=== PATIENT | male | born 2000 | race Caucasian/White ===

== ENCOUNTER 2021-04-17 18:10 | Emergency (ER) | payer MEDICAID, SELFPAY ==
--- NOTE | 2021-04-17 | ECG_ITS ---
Test Reason : CHEST PAIN Blood Pressure : / mmHG Vent. Rate : 058 BPM Atrial Rate : 058 BPM P-R Int : 162 ms QRS Dur : 096 ms QT Int : 406 ms P-R-T Axes : 013 061 051 degrees QTc Int : 398 ms Sinus bradycardia Otherwise normal ECG No previous ECGs available Referred By: Faraz Strong Electronically Signed By:CESAR SWIFT
--- NOTE | 2021-04-17 19:11 | PC.NURSE ---
PT CALLED IN TRIAGE, NO RESPONSE.
== END 2021-04-17 19:16 | disposition left against medical advice (07) ==
PROVIDERS: Emergency Provider Emergency Medicine
DX: R07.9 Chest pain, unspecified (principal)
CPT/HCPCS: 93005; 99283

== ENCOUNTER 2021-04-30 19:26 | Emergency (ER) | payer MEDICAID, SELFPAY ==
[2021-04-30 19:42] VITALS: BP 139/78; PULSE 69; RESP 18; TEMP 36.3; O2SAT 100; BMI 19.8
== END 2021-04-30 21:00 | disposition left against medical advice (07) ==
PROVIDERS: Emergency Provider Emergency Medicine
DX: R20.0 Anesthesia of skin (principal)
CPT/HCPCS: 99281; 99282

== ENCOUNTER 2021-05-10 14:21 | Emergency (ER) | payer MEDICAID, SELFPAY ==
--- NOTE | ~2021-05-10 | XR_ITS ---
EXAMINATION: XR CHEST CLINICAL INFORMATION: Pneumonia COMPARISON: None TECHNIQUE: PA view of the chest was obtained. FINDINGS: No significant abnormality is noted involving the heart, lungs, mediastinum, bony thorax or soft tissues. XR/XR chest 1V IMPRESSION: No acute disease.
[2021-05-10 14:32] VITALS: BP 138/90; PULSE 98; O2SAT 98
[2021-05-10 15:05] VITALS: BP 134/93; PULSE 80; RESP 18; TEMP 36.4; O2SAT 99; BMI 18.8
--- NOTE | 2021-05-10 15:57 | ED.GENADULT ---
HPI - General Adult General Chief complaint: General Medical Stated complaint: bodyaches Time Seen by Provider: 05/10/21 15:25 Source: patient Mode of arrival: ambulatory Limitations: no limitations History of Present Illness HPI narrative: Patient presents to ED for coughing phlegm, body aches, and chills for the past week. Patient states already being on antibiotics for tooth infection that has improved significantly and nonpainful Patient denies any drooling, chest pain, shortness of breath, neck swelling, facial swelling, weakness, or dizziness. Patient also states right shoulder pain. Patient denies any trauma, swelling, redness, deformity of right upper shoulder. Related Data Previous Rx's Medication Instructions Recorded benzonatate 100 mg capsule 100 mg PO TID PRN #15 cap 05/10/21 (Kaycee Zapata) Allergies Allergy/AdvReac Type Severity Reaction Status Date / Time No Known Allergies Allergy Verified 05/10/21 15:08 Review of Systems Review of Systems: Yes all other systems are reviewed and are negative Constitutional: Constitutional: Reports as per HPI, Reports no additional constitutional complaints and Reports body ache(s) Eyes: Eyes: Reports as per HPI and Reports no additional eye complaints ENT: Reports system reviewed and no additional complaints, except as documented and Reports as per HPI Cardiovascular: Cardiovascular: Reports as per HPI and Reports no additional cardiovascular complaints Respiratory: Respiratory: Reports as per HPI, Reports no additional respiratory complaints, Reports cough and Reports excessive phlegm production (Green phlegm) Gastrointestinal: Gastrointestinal: Reports as per HPI and Reports no additional gastrointestinal complaints Genitourinary: Genitourinary: Reports no additional male genitourinary complaints Musculoskeletal: Musculoskeletal: Reports no additional musculoskeletal complaints, Reports as per HPI and Reports arthralgias (Shoulder pain) Neurologic: Reports system reviewed and no additional complaints, except as documented and Reports as per HPI Psychiatric: Psychiatric: Reports no additional psychiatric complaints and Reports as per HPI [facility] Past Medical History Medical History (Updated 05/10/21 @ 17:13 by KEZIA Zuniga) Anxiety Depression Social History Social History Advance Directives: No Advance Directives Information Provided: No Physical Exam Vital Signs: Vital Signs: Last Vital Signs Temp 97.6 F 05/10/21 15:05 Pulse 80 05/10/21 15:05 Resp 18 05/10/21 15:05 BP 134/93 H 05/10/21 15:05 Pulse Ox 99 10/22/21 15:05 Body Mass Index 18.8 Const: General: cooperative, healthy appearing, comfortable, no acute distress, well developed, alert and awake Orientation/consciousness: patient oriented x3 HENMT: Other: Negative for signs of cellulitis in submandibular space Head: Yes normal to inspection, Yes No palpable skull fracture present, Yes normocephalic, Yes atraumatic and No abrasion Ears: hearing grossly normal bilaterally, external ears normal, TM's normal bilaterally, EAC's normal, mastoids normal and no periauricular adenopathy General nose exam: Normal external nose present and Normal nares present Face and sinus: Yes normal facial exam and Yes sinuses nontender Teeth and gingiva: dentition normal and gingiva normal Throat: Yes posterior oropharynx normal, Yes tonsils normal and Yes uvula midline Eyes: General: appearance normal, both eyes and all related structures Neck: Neck: Yes normal visual inspection, Yes full ROM, Yes no lymphadenopathy, Yes no meningeal signs, Yes trachea midline, Yes supple, No anterior neck swelling and No tender Chest: Chest palpation & inspection: normal inspection of the chest and normal palpation of entire chest wall Resp: Effort & Inspection: normal respiratory effort and able to speak in complete sentences Auscultation: clear to auscultation bilaterally Cardio: Jugular venous distension: no JVD Heart sounds: S1 normal heart sound present and S2 normal heart sound present GI: Inspection: Yes normal to inspection and No abdominal wall ecchymosis Palpation (GI): Soft to palpation, not firm, nontender, no guarding and not rigid : General: No CVA tenderness and Yes no CVA tenderness Back/Spine/Pelvis: Back: no CVA tenderness, No CVA tenderness and No back tenderness Skin: General skin exam: no rashes or lesions noted and elasticity normal Neuro: General: patient oriented x3, gait normal, no meningeal signs and CN's II-XI intact bilaterally Cranial nerves: Yes CN's II-XII intact bilaterally Extrem: Other: All extremities including right negative for any signs of ecchymosis, swelling, deformity, redness, mass on palpation, hotness, coldness, pus discharge or foul odor. All extremities motor/neuro/vascular exam intact. General: Yes normal to inspection and Yes full ROM Psych: Appearance: grossly normal, well kempt and not disheveled Course Course Course Narrative: Patient speaking in full sentences and not using accessory muscles. Negative for drooling or change in voice. Negative for hoarseness. Negative for neck swelling. Will do COVID and chest x-ray. Reevaluation(s) Reevaluation #1: COVID swab and chest x-ray negative for pneumonia and COVID. Not suspect Elie angina. Patient is not hoarse. Negative for drooling. Negative for swelling of neck or oral cavity. Negative for fluctuance in oral cavity/submandibular space. Negative for any redness. Patient playing video games. Negative for any neck swelling. Dr. Aubrey Taylor evaluated patient and agreed the patient is not having Elie angina can be discharged. Diagnosis URI. Time: 17:12 Medical Decision Making MDM Narrative Medical decision making narrative: URI Lab Data Labs: Lab Results 05/10/21 Range/Units 15:39 Coronavirus (PCR) NEGATIVE (Negative) Influenza Type A (PCR) NEGATIVE (Negative) Influenza Type B (PCR) NEGATIVE (Negative) RSV RNA Qual (PCR) NEGATIVE (Negative) Discharge Plan Discharge Clinical Impression: Acute upper respiratory infection Patient Disposition: Home, Self-Care Instructions: Upper Respiratory Infection (ED) Additional Instructions: A chest x-ray and COVID swab came back negative. Return to the ED for any shortness of breath, coughing up blood, leg swelling, calf pain, neck swelling, drooling, change in voice, inability tolerate solid food/liquid, or any other concerning symptoms. Please follow-up with primary care provider Prescriptions: New benzonatate [Tessalon Perles] 100 mg capsule 100 mg PO TID PRN (Reason: cough) Qty: 15 RF: 0 Interventions: ED Discharge Assessment Last Done: 05/10/21 17:32 Discharge Date/Time: 05/10/21 17:33 Print Language: Romansh
[2021-05-10] MEDS: Cyclobenzaprine HCl 5 MG TABLET PO (16:04)
[2021-05-10 16:21] LABS: Influenza A PCR NEGATIVE (Negative); Influenza B PCR NEGATIVE (Negative); Resp Syncy Virus RNA Qual PCR NEGATIVE (Negative); SARS COV2 PCR INHOUSE NEGATIVE (Negative)
== END 2021-05-10 17:33 | disposition home or self-care (01) ==
PROVIDERS: Physician Assistant; Emergency Provider Internal Medicine
DX: J06.9 Acute upper respiratory infection, unspecified (principal); M79.10 Myalgia, unspecified site; R05.9 Cough, unspecified; Z79.899 Other long term (current) drug therapy; Z20.822 Contact with and (suspected) exposure to COVID-19
CPT/HCPCS: 0241U; 36415; 71045; 99283

== ENCOUNTER 2021-05-11 03:42 | Emergency (ER) | payer MEDICAID, SELFPAY ==
[2021-05-11 03:45] VITALS: BP 133/78; PULSE 80; O2SAT 100
[2021-05-11 03:50] VITALS: BP 120/74; PULSE 68; RESP 16; TEMP 37; O2SAT 97; BMI 19.8
--- NOTE | 2021-05-11 04:13 | ED.GENADULT ---
HPI - General Adult General Chief complaint: Abdominal Pain Stated complaint: BACK PAIN Time Seen by Provider: 05/11/21 04:06 Source: patient and EMS Mode of arrival: EMS Limitations: no limitations History of Present Illness HPI narrative: Patient comes to the emergency room by ambulance complaining of right lower back pain. Patient states it started several hours ago. Patient denies any back injury, no heavy lifting. Patient has been trying to take ibuprofen for the back pain. Patient denies flank pain, patient states that he had 1 episode dysuria prior to arrival, no hematuria, denies fever chills. Patient states he was seen earlier today for URI. Symptoms in this visit are different than on his visit earlier today. Related Data Previous Rx's Medication Instructions Recorded benzonatate 100 mg capsule 100 mg PO TID PRN #15 cap 05/10/21 (Kaycee Zapata) cyclobenzaprine 10 mg tablet 10 mg PO TID PRN #7 tab 05/11/21 Allergies Allergy/AdvReac Type Severity Reaction Status Date / Time No Known Allergies Allergy Verified 05/11/21 04:20 Review of Systems Review of Systems: Constitutional : No Weight loss, No Fever, No Chills, No Night Sweats, No Fatigue, No Malaise ENT/Mouth : No Hearing loss, No Ear Pain, No Nasal Congestion, No Sinus Pain, No Hoarseness, No sore throat, No Rhinorrhea, No Swallowing Difficulty Eyes: No Eye Pain, No Swelling, No Redness, No Foreign Body, No Discharge, No Vision Changes Cardiovascular : No Chest Pain, No SOB, No Dyspnea on Exertion, No Orthopnea, No Edema, No Palpitations Respiratory : Mild cough, mild congestion, known to have a URI, No Smoke Exposure, No Dyspnea Gastrointestinal : No Nausea, No Vomiting, No Diarrhea, No Constipation, No abdominal Pain, No Hematochezia, No Melena Genitourinary : no irregular bleeding, No Dysuria, No Urinary Frequency, No Hematuria, No Urinary Incontinence, No Urgency, No Flank Pain, No Urinary Flow Changes, No Hesitancy Musculoskeletal : No joint pain, No Myalgias, No Joint Swelling, complaining of right lower back pain Skin : No Skin Lesions, No rash Neuro : No Weakness, No Numbness, No Paresthesias, No Loss of Consciousness, No Dizziness, No Headache Psych : No Anxiety/Panic, No Depression, No SI/HI/AH/VH, No Social Issues, Heme/Lymph: No Bruising, No Bleeding,No Lymphadenopathy Endocrine : No Polyuria, No Polydipsia, No Temperature Intolerance [facility] Past Medical History Medical History Anxiety Depression Social History Social History Advance Directives: No Advance Directives Information Provided: No Physical Exam Vital Signs: Vital Signs: Last Vital Signs Temp 98.6 F 05/11/21 03:50 Pulse 68 05/11/21 03:50 Resp 16 05/11/21 03:50 BP 120/74 05/11/21 03:50 Pulse Ox 97 05/11/21 03:50 Body Mass Index 19.8 Const: Other: Appearance: Alert. Oriented X3. No acute distress. Eyes: Pupils equal, round and reactive to light. ENT: Pharynx normal. Neck: Normal inspection. Neck supple. No lymph nodes noted. No crepitus CVS: Normal heart rate and rhythm. Pulses normal. Normal S1 and S2 Respiratory: No respiratory distress. Breath sounds normal. No Wheezing. No rales Abdomen: Soft and nontender. No rigidity. No distention. Back: Palpable muscles in the paraspinal muscles on the right side Skin: Skin warm and dry. Normal skin color. Normal skin turgor. Extremities: No lower extremity edema. No lower extremity edema. No Lacerations. No Rash Neuro: Oriented X 3. No motor deficit. No sensory deficit. Moving all extermities. No slurred speech. Course Course Course Narrative: Patient given 1 dose of p.o. Valium, patient was able to sleep, states his back still hurts slightly but improved. Patient instructed to follow-up with his primary care physician to Medical Decision Making Lab Data Result diagrams: 05/11/21 04:26 05/11/21 04:26 Labs: Lab Results 05/11/21 05/11/21 05/11/21 Range/Units 04:23 04:26 04:26 WBC 7.5 (4.8-10.8) X10*3/uL RBC 4.60 (4.60-5.80) X10*6/uL Hgb 14.3 (14.0-18.0) g/dl Hct 42.1 (42-52) % MCV 91.5 (80-98) fL MCH 31.1 (27.0-33.0) pg MCHC 34.0 (31.0-36.0) g/dl RDW 12.3 (11.0-16.0) % Plt Count 237 (160-400) X10*3/uL MPV 9.7 (9.4-12.4) fL Immature Gran % (Auto) 0.3 (0.0-0.4) % Neut % (Auto) 55.9 (45-73) % Lymph % (Auto) 30.8 (20-40) % [place] % (Auto) 10.3 (2-11) % Eos % (Auto) 2.0 (0-4) % Baso % (Auto) 0.7 (0-2) % Lymph # (Auto) 2.3 (1.2-4.9) X10*3/uL [place] # (Auto) 0.8 (0.1-1.2) X10*3/uL Eos # (Auto) 0.2 (0.0-0.4) X10*3/uL Baso # (Auto) 0.1 (0.0-0.2) X10*3/uL Abs Immat Gran (auto) 0.02 (0.00-0.03) X10*3/uL Absolute Neuts (auto) 4.2 (2.0-8.3) X10*3/uL Absolute Nucleated RBC 0.000 (0.0-0.012) X10*3/uL Nucleated RBC % (auto) 0.0 (0.0-0.2) /100WBC Sodium 137 (135-145) mmol/L Potassium 4.4 (3.3-5.1) mmol/L Chloride 100 (96-108) mmol/L Carbon Dioxide 29 (22-29) mmol/L Anion Gap 12 (12-20) BUN 14 (9-16) mg/dL Creatinine 1.02 (0.5-1.4) mg/dL Estim Creat Clear Calc 108.3 Estimated GFR > 60 Random Glucose 87 (60-115) mg/dL Calcium 10.5 H (8.4-10.2) mg/dL Total Bilirubin 0.6 (0.0-1.0) mg/dL Direct Bilirubin 0.3 (0.0-0.5) mg/dL AST 31 (5-37) U/L ALT 18 (0-40) U/L Alkaline Phosphatase 56 (39-117) U/L Total Protein 7.6 (6.5-8.0) g/dL Albumin 5.2 H (3.5-5.0) g/dL Urine Color YELLOW Urine Appearance CLEAR Urine pH 6.0 (5.0-8.0) Ur Specific [place] 1.020 (1.005-1.025) Urine Protein NEG (NEG-TRACE) MG/DL Urine Glucose (UA) NEG (NEG) MG/DL Urine Ketones NEG (NEG) MG/DL Urine Blood NEG (NEG) Urine Nitrite NEG (NEG) Ur Leukocyte Esterase NEG (NEG) Discharge Plan Discharge Clinical Impression: Back muscle spasm Patient Disposition: Home, Self-Care Instructions: Muscle Spasm (ED) Additional Instructions: Please follow-up with your primary care physician tomorrow. If you have any worsening or new symptoms, please return to the emergency room or call 911 Prescriptions: New cyclobenzaprine 10 mg tablet 10 mg PO TID PRN (Reason: muscle spasm) Qty: 7 RF: 0 No Action benzonatate [Tessalon Perles] 100 mg capsule 100 mg PO TID PRN (Reason: cough) Qty: 15 RF: 0
[2021-05-11] MEDS: diazePAM 5 MG TABLET PO (04:17)
[2021-05-11 04:34] LABS: MANUAL DIFF FLAG NO
[2021-05-11 04:35] LABS: Basophils Absolute Auto 0.1 X10*3/uL (0.0-0.2); Basophils Percent Auto 0.7 % (0-2); Eosinophils Absolute Auto 0.2 X10*3/uL (0.0-0.4); Hematocrit 42.1 % (42-52); Hemoglobin 14.3 g/dl (14.0-18.0); Imm Gran Abs Auto 0.02 X10*3/uL (0.00-0.03); Imm Gran Pct Auto 0.3 % (0.0-0.4); Lymphocytes Absolute Auto 2.3 X10*3/uL (1.2-4.9); Lymphocytes Percent Auto 30.8 % (20-40); Mean Corpuscular Hemoglobin 31.1 pg (27.0-33.0); Mean Corpuscular Volume 91.5 fL (80-98); Mean Platelet Volume 9.7 fL (9.4-12.4); Monocytes Absolute Auto 0.8 X10*3/uL (0.1-1.2); Monocytes Percent Auto 10.3 % (2-11); Neutrophils Absolute Auto 4.2 X10*3/uL (2.0-8.3); Neutrophils Percent Auto 55.9 % (45-73); Platelet Count 237 X10*3/uL (160-400); Red Cell Distribution Width 12.3 % (11.0-16.0); White Blood Count 7.5 X10*3/uL (4.8-10.8)
[2021-05-11 04:36] LABS: Appearance Urine CLEAR; Color Urine YELLOW; Glucose Urine UA NEG (NEG); Leukocyte Esterase Urine NEG (NEG); Nitrite Urine NEG (NEG); Urine Blood NEG (NEG); Urine Ketones NEG (NEG); Urine Protein NEG (NEG-TRACE)
[2021-05-11 04:58] LABS: Alanine Aminotransferase 18 U/L (0-40); Albumin Level 5.2 g/dL (3.5-5.0); Alkaline Phosphatase 56 U/L (39-117); Anion Gap 12 (12-20); Aspartate Amino Transferase 31 U/L (5-37); Bilirubin Direct 0.3 mg/dL (0.0-0.5); Bilirubin Total 0.6 mg/dL (0.0-1.0); Blood Urea Nitrogen 14 mg/dL (9-16); Calcium 10.5 mg/dL (8.4-10.2); Carbon Dioxide 29 mmol/L (22-29); Chloride 100 mmol/L (96-108); Creatinine Clr Calc Pharmacy 108.3; Estimated Glomerular Filt Rate > 60; Glucose Random 87 mg/dL (60-115); Potassium 4.4 mmol/L (3.3-5.1); Sodium 137 mmol/L (135-145); Total Protein 7.6 g/dL (6.5-8.0)
[2021-05-11 05:24] VITALS: BP 107/66; PULSE 72; RESP 16; O2SAT 100
== END 2021-05-11 05:32 | disposition home or self-care (01) ==
PROVIDERS: Emergency Provider Emergency Medicine
DX: M62.830 Muscle spasm of back (principal); Z79.899 Other long term (current) drug therapy
CPT/HCPCS: 36415; 80048; 80076; 81003; 85025; 99283; 99284

== ENCOUNTER 2021-05-13 23:00 | Emergency (ER) | payer MEDICAID, SELFPAY ==
[2021-05-13 23:06] VITALS: BP 132/83; PULSE 76; O2SAT 100
[2021-05-13 23:09] VITALS: BP 114/79; PULSE 60; RESP 16; TEMP 37; O2SAT 100; BMI 18.8
--- NOTE | 2021-05-14 00:34 | ED.GENADULT ---
HPI - General Adult General Chief complaint: Extremity Problem Stated complaint: right sided weakness x2-3 weeks Time Seen by Provider: 05/13/21 23:06 Source: patient Mode of arrival: ambulatory Limitations: no limitations History of Present Illness HPI narrative: Patient has multiple nonspecific complaints complaining of pain on the right-sided costochondritis increased anxiety been here 2 times for the same workup was negative was given Flexeril comes back again for same pain no motor weakness walking does not look in any stress Related Data Previous Rx's Medication Instructions Recorded benzonatate 100 mg capsule 100 mg PO TID PRN #15 cap 05/10/21 (Tessalon Perles) cyclobenzaprine 10 mg tablet 10 mg PO TID PRN #7 tab 05/11/21 Allergies Allergy/AdvReac Type Severity Reaction Status Date / Time No Known Allergies Allergy Verified 05/11/21 04:20 Review of Systems Review of Systems: Yes all other systems are reviewed and are negative PMFSH Past Medical History Medical History Anxiety Depression Social History Social History Advance Directives: No Advance Directives Information Provided: No Physical Exam Vital Signs: Vital Signs: Last Vital Signs Temp 98.6 F 05/13/21 23:09 Pulse 60 05/13/21 23:09 Resp 16 05/13/21 23:09 BP 114/79 05/13/21 23:09 Pulse Ox 100 05/13/21 23:09 Body Mass Index 18.8 Appearance: Alert. Oriented X3. No acute distress. Eyes: No pallor or icterus ENT: Pharynx normal. Oral Mucosa moist Neck: Normal inspection. Neck supple. CVS: Normal heart rate and rhythm. Pulses normal. Respiratory: No respiratory distress. Equal air entry bilateral, no wheezing/rales/rhonchi Abdomen: Soft and nontender. Bowel sounds are present, no mass palpable, Skin: Skin warm and dry. Normal skin color. Normal skin turgor. Extremities: No lower extremity edema. No calf tenderness Neuro: Oriented X 3. No motor deficit. No sensory deficit.No cerebellar signs , cranial nerves II-XII intact diffuse muscular pain on the back no focal deficit Medical Decision Making MDM Narrative Medical decision making narrative: Patient nonspecific muscular pain insert anxiety already seen 2 times here patient eloped from the ER without prescription Discharge Plan Discharge Clinical Impression: Musculoskeletal back pain Patient Disposition: Home, Self-Care Instructions: Musculoskeletal Pain (ED) Additional Instructions: Take pain medication as prescribed and follow with PCP Prescriptions: No Action cyclobenzaprine 10 mg tablet 10 mg PO TID PRN (Reason: muscle spasm) Qty: 7 RF: 0 benzonatate [Tessalon Perles] 100 mg capsule 100 mg PO TID PRN (Reason: cough) Qty: 15 RF: 0
--- NOTE | 2021-05-14 01:42 | PC.NURSE ---
On attempt at medication administration, pt noted to have absconded from dept
== END 2021-05-14 01:44 | disposition home or self-care (01) ==
PROVIDERS: Emergency Provider Internal Medicine
DX: M54.9 Dorsalgia, unspecified (principal); F41.9 Anxiety disorder, unspecified
CPT/HCPCS: 99282

== ENCOUNTER 2021-05-15 12:31 | Outpatient (REF) | payer MEDICAID, SELFPAY ==
--- NOTE | ~2021-05-15 | US_ITS ---
EXAMINATION: US DIAGNOSTIC ULTRASOUND BREAST, LEFT CLINICAL INFORMATION: Enlarging retroareolar mass. COMPARISON: Mammography of same day. TECHNIQUE: Ultrasound of the breast is performed with real-time schmidt scale imaging and color Doppler. FINDINGS: Targeted ultrasound of the left breast did not demonstrate any cystic or solid mass. No area of abnormal distal sound shadowing was appreciated. This may representing gynecomastia however patient states that he only feels it on one side and that it has been increasing in size for the past 8 months. Recommend clinical follow-up. Results are discussed with the patient at time of visit. US/US breast LT limited IMPRESSION: 5 cm density on mammogram with no circumscribed mass seen on ultrasound. Clinical follow-up recommended. ASSESSMENT: BI-RADS 3: Probably Benign RECOMMENDATION: Patient should be managed based on the clinical impression.
--- NOTE | ~2021-05-15 | MM_ITS ---
EXAMINATION: MM DIAGNOSTIC DIGITAL BREAST TOMOSYNTHESIS, BILATERAL TARGETED LEFT BREAST ULTRASOUND CLINICAL INFORMATION: Left breast nodule 3 o'clock position patient has noticed for approximately 8 months and has been getting larger. COMPARISON: Mammography: None. TECHNIQUE: Digital breast tomosynthesis is performed in both the craniocaudal and mediolateral oblique views along with computer-aided detection (CAD). Synthesized 2D images are generated from the tomosynthesis. Targeted left breast ultrasound. FINDINGS: There are scattered areas of fibroglandular density (ACR BI-RADS breast composition Category b). Some skin calcifications are seen about the right axilla. In the retroareolar and lateral aspect of the breast there is a circumscribed approximately 5 cm in diameter density without microcalcifications and which is not fully visualized due to difficulty in including posterior tissues. Targeted ultrasound of the left breast did not demonstrate any cystic or solid mass. No area of abnormal distal sound shadowing was appreciated. This may represent gynecomastia, however, patient states that he only feels it on one side and that it has been increasing in size for the past 8 months. Recommend clinical follow-up. Results are discussed with the patient at time of visit. MM/MM tomosynthesis diagnostic BI IMPRESSION: 5 cm density on mammogram with no circumscribed mass seen on ultrasound. Clinical follow-up recommended. ASSESSMENT: BI-RADS 3: Probably Benign. RECOMMENDATION: Patient should be managed based on the clinical impression.
== END 2021-05-15 12:32 | disposition home or self-care (01) ==
LOC: HO.MAMMO 12:31
PROVIDERS: Visit Provider Internal Medicine
DX: N63.21 Unspecified lump in the left breast, upper outer quadrant (principal)
CPT/HCPCS: 76642; 77062; 77066

== ENCOUNTER 2021-05-16 10:04 | Emergency (ER) | payer MEDICAID, SELFPAY ==
--- NOTE | ~2021-05-16 | CT_ITS ---
EXAMINATION: CT ABDOMEN AND PELVIS WITHOUT CONTRAST CLINICAL INFORMATION: Blood in stool. Abdominal pain COMPARISON: None TECHNIQUE: Multidetector volumetric imaging was performed from the superior aspect of the liver through the pubic symphysis. Sagittal and coronal reformatted images were obtained on the technologist's workstation. This CT examination was performed using dose optimization techniques as appropriate, variously including the following: *Automated exposure control *Adjustment of mA and/or kV according to patient size (this includes techniques or standardized protocols for targeted exams where dose is matched to indication/reason for exam; i.e. extremities or head) *Use of iterative reconstruction technique DLP: 323 mGy-cm FINDINGS: Study is somewhat limited due to lack of adipose tissue and fat plane between structures as well as no oral or IV contrast. LUNG BASES: There is a 5 mm right fissural lymph nodes seen along the major fissure. No confluent parenchymal disease. No pleural or pericardial effusion. LIVER, GALLBLADDER, AND BILIARY TREE: The liver is normal in size, shape, and attenuation. No focal hepatic lesion or biliary ductal dilatation is present. The gallbladder is unremarkable with no evidence of radiopaque gallstones, gallbladder wall thickening, or obvious pericholecystic inflammatory changes. PANCREAS: No definite abnormal mass or peripancreatic fluid is appreciated however fat planes are difficult to evaluate. SPLEEN: Unremarkable. ADRENAL GLANDS: Unremarkable. KIDNEYS AND URETERS: The kidneys are normal in size, shape, and attenuation. No hydronephrosis, hydroureter, or calculi seen. No perinephric stranding. BLADDER: Unremarkable. GASTROINTESTINAL TRACT: No dilated loops of large or small bowel are evident. No free air or free fluid is seen. No pericolonic inflammatory changes seen involving the sigmoid, descending, or transverse colon. It is difficult to evaluate the cecum and proximal ascending colon and there is question of some mild inflammatory change. The appendix is not definitely identified however there is a linear region of increased density which may represent appendicolith/debris within appendix. ABDOMINAL WALL: No significant hernia is appreciated. LYMPH NODES: No lymphadenopathy is appreciated. Lack of mesenteric fat makes it difficult to evaluate this region. VASCULAR: Unremarkable. PELVIC VISCERA: Unremarkable. OSSEOUS STRUCTURES: No suspicious destructive bony lesions identified. CT/CT abdomen pelvis wo con IMPRESSION: Limited study related to lack of intra-abdominal fat, oral contrast, and IV contrast. No evidence of acute diverticulitis. Difficult to evaluate with question possible pericolonic stranding about the cecum. Appendix not definitely identified however linear region of increased density may represent appendicolith/debris within the appendix. No definite abscess collection is appreciated.
--- NOTE | ~2021-05-16 | CT_ITS ---
EXAMINATION: CT ABDOMEN AND PELVIS WITH CONTRAST CLINICAL INFORMATION: Blood in stool. Abdominal pain. Question appendicitis. Previous CT shows inflamed cecum. COMPARISON: Previous CT from earlier the same day TECHNIQUE: Multidetector volumetric images were obtained from the superior aspect of the liver through the pubic symphysis following administration 85 mL of Omnipaque 350 intravenous contrast. Sagittal and coronal reformatted images were obtained on the technologist's workstation. Oral contrast: Yes This CT examination was performed using dose optimization techniques as appropriate, variously including the following: *Automated exposure control *Adjustment of mA and/or kV according to patient size (this includes techniques or standardized protocols for targeted exams where dose is matched to indication/reason for exam; i.e. extremities or head) *Use of iterative reconstruction technique DLP: 237 mGy-cm FINDINGS: LUNG BASES: There is a 3 mm nodule in the right lower lobe adjacent to the major fissure probably representing a subpleural lymph node. The lung bases are otherwise clear. LIVER, GALLBLADDER, AND BILIARY TREE: The liver is normal in size, shape, and attenuation. No focal hepatic lesion or biliary ductal dilatation is present. The gallbladder is unremarkable with no evidence of radiopaque gallstones, gallbladder wall thickening, or obvious pericholecystic inflammatory changes. PANCREAS: Unremarkable. SPLEEN: Unremarkable. ADRENAL GLANDS: Unremarkable. KIDNEYS AND URETERS: The kidneys are normal in size, shape, and attenuation. No hydronephrosis, hydroureter, or calculi seen. No perinephric stranding. BLADDER: Unremarkable. GASTROINTESTINAL TRACT: There is stool throughout the colon questionable for constipation. The small and large bowel are unremarkable. The appendix is not identified with certainty. There are no inflammatory changes seen in the right lower quadrant. ABDOMINAL WALL: No significant hernia is appreciated. LYMPH NODES: Normal. VASCULAR: Unremarkable. PELVIC VISCERA: Unremarkable. OSSEOUS STRUCTURES: Unremarkable. CT/CT abdomen pelvis w con IMPRESSION: Appendix not identified with certainty. No inflammatory changes seen in the right lower quadrant to suggest appendicitis. Stool throughout the colon questionable for constipation.
[2021-05-16 10:14] VITALS: BP 126/74; PULSE 80; RESP 19; TEMP 36.6; O2SAT 100; BMI 18.4
--- NOTE | 2021-05-16 12:10 | ED_ITS ---
HPI - General Adult General Chief complaint: Abdominal Pain Stated complaint: abd pain, blood in stool Time Seen by Provider: 05/16/21 11:19 Source: patient Mode of arrival: ambulatory Limitations: no limitations History of Present Illness HPI narrative: 21-year-old male with severe anxiety presents to ED for multiple complaints. Patient presents to ED for 1 episode of blood in stool and abdominal pain. Patient states this morning he was straining while defectaig and there was blood in the stool and tissue. Patient states stool was brown. Patient denies any recent trauma to abdomen or rectal exam. Patient states also chronic muscular back pain he has been seen in the ER 3 times for. Patient denies any chest pain or shortness of breath. Patient states no fever or chills. Patient's states has no dysuria hematuria. Related Data Previous Rx's Medication Instructions Recorded benzonatate 100 mg capsule 100 mg PO TID PRN #15 cap 05/10/21 (Tessalon Perles) cyclobenzaprine 10 mg tablet 10 mg PO TID PRN #7 tab 05/11/21 polyethylene glycol 3350 17 17 g PO DAILY 9 Days #153 g 05/16/21 gram/dose oral powder (Miralax) Allergies Allergy/AdvReac Type Severity Reaction Status Date / Time No Known Allergies Allergy Verified 05/11/21 04:20 Review of Systems Review of Systems: Yes all other systems are reviewed and are negative Constitutional: Constitutional: Reports as per HPI and Reports no additional constitutional complaints Eyes: Eyes: Reports as per HPI and Reports no additional eye complaints ENT: Reports system reviewed and no additional complaints, except as documen apolinar and Reports as per HPI Cardiovascular: Cardiovascular: Reports as per HPI and Reports no additional cardiovascular complaints Respiratory: Respiratory: Reports as per HPI and Reports no additional respiratory complaints Gastrointestinal: Gastrointestinal: Reports as per HPI, Reports no additional gastrointestinal complaints, Reports abdominal pain and Reports hematochezia (One episode) Genitourinary: Genitourinary: Reports no additional male genitourinary complaints and Reports as per HPI Musculoskeletal: Musculoskeletal: Reports no additional musculoskeletal complaints, Reports as per HPI and Reports back pain Integumentary/Breasts: Skin/Breast: Reports system reviewed and no additional complaints, except as docu and Reports as per HPI Neurologic: Reports system reviewed and no additional complaints, except as documented and Reports as per HPI Endocrine: Endocrine: Reports no additional endocrine complaints and Reports as per [facility] Past Medical History Medical History Anxiety Depression Social History Social History Alcohol intake: former Patient Tobacco Use Status: Never used Tobacco Use of substances other than those prescribed or required for medical reasons: Yes Substance Use Type: Marijuana Substance Use Frequency: Chronic Longstanding Last Used Substance: Days (ago) Any prior treatment program specific to substance use: No Advance Directives: No Advance Directives Information Provided: Yes Physical Exam Vital Signs: Vital Signs: Last Vital Signs Temp 98 F 05/16/21 10:14 Pulse 62 05/16/21 12:53 Resp 16 05/16/21 12:53 BP 120/72 05/16/21 12:53 Pulse Ox 100 05/16/21 12:53 Body Mass Index 18.4 Const: General: cooperative, healthy appearing, comfortable, no acute distress, well developed, alert, awake and Physically active Orientation/cons ciousness: patient oriented x3 HENMT: Head: Yes normal to inspection, Yes No palpable skull fracture present, Yes normocephalic, Yes atraumatic, Yes abrasion, No Acrocyanosis present and No Luna's sign Eyes: General: appearance normal, both eyes and all related structures Neck: Neck: Yes normal visual inspection, Yes full ROM, Yes no lymphadenopathy, Yes no meningeal signs, Yes trachea midline, Yes supple and No tender Chest: Chest palpation & inspection: normal inspection of the chest and normal palpation of entire chest wall Resp: Effort & Inspection: normal respiratory effort and able to speak in complete sentences Auscultation: clear to auscultation bilaterally Cardio: Jugular venous distension: no JVD Heart sounds: S1 normal heart sound present and S2 normal heart sound present GI: Other: patient refuse rectal exam. Inspection: Yes normal to inspection and No abdominal wall ecchymosis Palpation (GI): Soft to palpation, not firm, nontender, no guarding and not rigid : General: Yes Bimanual renal exam normal bilaterally, Yes bladder normal to inspection, No CVA tenderness and Yes no CVA tenderness Back/Spine/Pelvis: Back: no CVA tenderness, No CVA tenderness and back tenderness Skin: General skin exam: no rashes or lesions noted and elasticity normal Neuro: General: patient oriented x3, gait normal, no meningeal signs and CN's II-XI intact bilaterally Cranial nerves: Yes CN's II-XII intact bilaterally Extrem: General: Yes normal to inspection and Yes full ROM Psych: Appearance: grossly normal, well kempt and not disheveled Course Course Course Narrative: Patient seems very anxious. Patient refused rectal exam. Assay is 1 episode of blood in stools due to hemorrhoids or fissure. Unlikely, lightest been due to patient refusing rectal exam and keep stating abdominal pain other than the tenderness will do CT scan to make sure there is no colitis. Basic labs drawn. Patient just 1 IM medication. Reevaluation(s) Reevaluation #1: Labs white blood cell count came back normal. Liver enzymes normal. UA negative for UTI. Dry CT scan shows possible inflammation of C, and appendicoliths of appendix. It was discussed with patient necessity for repeat ultrasound with IV contrast to rule out appendicitis as dry CT scan states appendix cannot be evaluated. Patient agreeable plan Time: 13:47 Reevaluation #2: Patient's repeat CT scan negative for appendicitis. CT scan shows constipation large amount of stool. Patient is safe for discharge. Patient 1 episode from blood in stool most likely from straining due to constipation. Time: 16:28 Medical Decision Making [facility] Narrative Medical decision making narrative: Constipation Lab Data Result diagrams: 05/16/21 12:35 05/16/21 12:35 Labs: Lab Results 05/16/21 05/16/21 05/16/21 Range/Units 12:35 12:35 13:11 WBC 5.6 (4.8-10.8) X10*3/uL RBC 4.59 L (4.60-5.80) X10*6/uL Hgb 14.3 (14.0-18.0) g/dl Hct 41.8 L (42-52) % MCV 91.1 (80-98) fL MCH 31.2 (27.0-33.0) pg MCHC 34.2 (31.0-36.0) g/dl RDW 12.6 (11.0-16.0) % Plt Count 233 (160-400) X10*3/uL MPV 9.3 L (9.4-12.4) fL Immature Gran % (Auto) 0.2 (0.0-0.4) % Neut % (Auto) 53.5 (45-73) % Lymph % (Auto) 34.0 (20-40) % Rhea % (Auto) 9.0 (2-11) % Eos % (Auto) 2.9 (0-4) % Baso % (Auto) 0.4 (0-2) % Lymph # (Auto) 1.9 (1.2-4.9) X10*3/uL Rhea # (Auto) 0.5 (0.1-1.2) X10*3/uL Eos # (Auto) 0.2 (0.0-0.4) X10*3/uL Baso # (Auto) 0.0 (0.0-0.2) X10*3/uL Abs Immat Gran (auto) 0.01 (0.00-0.03) X10*3/uL Absolute Neuts (auto) 3.0 (2.0-8.3) X10*3/uL Absolute Nucleated RBC 0.000 (0.0-0.012) X10*3/uL Nucleated RBC % (auto) 0.0 (0.0-0.2) /100WBC Sodium 137 (135-145) mmol/L Potassium 4.7 (3.3-5.1) mmol/L Chloride 103 (96-108) mmol/L Carbon Dioxide 28 (22-29) mmol/L Anion Gap 11 L (12-20) BUN 11 (9-16) mg/dL Creatinine 0.95 (0.5-1.4) mg/dL Estim Creat Clear Calc 108.6 Estimated GFR > 60 Random Glucose 99 (60-115) mg/dL Calcium 9.5 D (8.4-10.2) mg/dL Total Bilirubin 0.6 (0.0-1.0) mg/dL AST 34 (5-37) U/L ALT 27 (0-40) U/L Alkaline Phosphatase 51 (39-117) U/L Total Protein 7.1 (6.5-8.0) g/dL Albumin 4.8 (3.5-5.0) g/dL Urine Color YELLOW Urine Appearance CLEAR Urine pH 7.5 (5.0-8.0) Ur Specific [place] 1.010 (1.005-1.025) Urine Protein NEG (NEG-TRACE) MG/DL Urine Glucose (UA) NEG (NEG) MG/DL Urine Ketones NEG (NEG) MG/DL Urine Blood NEG (NEG) Urine Nitrite NEG (NEG) Ur Leukocyte Esterase NEG (NEG) Discharge Plan Discharge Clinical Impression: Constipation Patient Disposition: Home, Self-Care Instructions: Constipation (ED) Additional Instructions: Your blood work and urinalysis came back normal. Abdominal CT scan shows constipation. You will be discharged with laxatives to help improve bowel movements. Return to the ED for chest pain, shortness of breath, abdominal pain, diarrhea, nausea, vomitting, gross blood in stool, fever, chills, black stool, or any other concerning symptoms. Prescriptions: New polyethylene glycol 3350 [Miralax] 17 gram/dose powder 17 g PO DAILY 9 Days Qty: 153 RF: 0 No Action cyclobenzaprine 10 mg tablet 10 mg PO TID PRN (Reason: muscle spasm) Qty: 7 RF: 0 benzonatate [Tessalon Perles] 100 mg capsule 100 mg PO TID PRN (Reason: cough) Qty: 15 RF: 0 Stand Alone Forms: Work/School Release Interventions: ED Discharge Assessment Last Done: 05/16/21 17:05 Discharge Date/Time: 05/16/21 17:06 Print Language: [place]
[2021-05-16 12:38] LABS: MANUAL DIFF FLAG NO
[2021-05-16 12:40] LABS: Basophils Percent Auto 0.4 % (0-2); Eosinophils Absolute Auto 0.2 X10*3/uL (0.0-0.4); Eosinophils Percent Auto 2.9 % (0-4); Hematocrit 41.8 % (42-52); Hemoglobin 14.3 g/dl (14.0-18.0); Imm Gran Abs Auto 0.01 X10*3/uL (0.00-0.03); Imm Gran Pct Auto 0.2 % (0.0-0.4); Lymphocytes Absolute Auto 1.9 X10*3/uL (1.2-4.9); Mean Corpuscular HGB Conc 34.2 g/dl (31.0-36.0); Mean Corpuscular Hemoglobin 31.2 pg (27.0-33.0); Mean Corpuscular Volume 91.1 fL (80-98); Mean Platelet Volume 9.3 fL (9.4-12.4); Monocytes Absolute Auto 0.5 X10*3/uL (0.1-1.2); Neutrophils Percent Auto 53.5 % (45-73); Platelet Count 233 X10*3/uL (160-400); Red Blood Count 4.59 X10*6/uL (4.60-5.80); Red Cell Distribution Width 12.6 % (11.0-16.0); White Blood Count 5.6 X10*3/uL (4.8-10.8)
[2021-05-16] MEDS: Acetaminophen 325 MG TABLET 650 MG PO (12:50)
[2021-05-16 12:53] VITALS: BP 120/72; PULSE 62; RESP 16; O2SAT 100
[2021-05-16 13:01] LABS: Alanine Aminotransferase 27 U/L (0-40); Albumin Level 4.8 g/dL (3.5-5.0); Alkaline Phosphatase 51 U/L (39-117); Anion Gap 11 (12-20); Aspartate Amino Transferase 34 U/L (5-37); Bilirubin Total 0.6 mg/dL (0.0-1.0); Blood Urea Nitrogen 11 mg/dL (9-16); Calcium 9.5 mg/dL (8.4-10.2); Carbon Dioxide 28 mmol/L (22-29); Chloride 103 mmol/L (96-108); Creatinine Clr Calc Pharmacy 108.6; Estimated Glomerular Filt Rate > 60; Glucose Random 99 mg/dL (60-115); Potassium 4.7 mmol/L (3.3-5.1); Sodium 137 mmol/L (135-145); Total Protein 7.1 g/dL (6.5-8.0)
[2021-05-16 13:20] LABS: Appearance Urine CLEAR; Color Urine YELLOW; Glucose Urine UA NEG (NEG); Leukocyte Esterase Urine NEG (NEG); Nitrite Urine NEG (NEG); PH 7.5 (5.0-8.0); Urine Blood NEG (NEG); Urine Ketones NEG (NEG); Urine Protein NEG (NEG-TRACE)
[2021-05-16] MEDS: iohexoL 350 MG/ML 100 ML INFUS..BTL IV (15:41)
== END 2021-05-16 17:06 | disposition home or self-care (01) ==
PROVIDERS: Physician Assistant; Emergency Provider Emergency Medicine Emergency Medical Services
DX: K59.00 Constipation, unspecified (principal); R10.9 Unspecified abdominal pain
CPT/HCPCS: 36415; 74176; 74177; 80053; 81003; 85025; 96372; 99284; Q9967

== ENCOUNTER 2021-05-18 14:28 | Emergency (ER) | payer MEDICAID, SELFPAY ==
[2021-05-18 14:31] VITALS: BP 128/103; PULSE 71; RESP 18; TEMP 36.9; O2SAT 100; BMI 18.4
[2021-05-18 16:25] LABS: Hematocrit 40.5 % (42.0-52.0); Hemoglobin 13.8 g/dl (14.0-18.0); Mean Corpuscular HGB Conc 34.1 g/dl (31.0-36.0); Mean Corpuscular Hemoglobin 30.9 pg (27.0-33.0); Mean Corpuscular Volume 90.6 fL (80.0-98.0); Mean Platelet Volume 9.5 fL (9.4-12.4); Platelet Count 246 X10*3/uL (160-400); Red Blood Count 4.47 X10*6/uL (4.60-5.80); Red Cell Distribution Width 12.3 % (11.0-16.0); White Blood Count 5.3 X10*3/uL (4.8-10.8)
[2021-05-18 16:41] LABS: Anion Gap 11 (12-20); Blood Urea Nitrogen 7 mg/dL (9-16); Calcium 9.9 mg/dL (8.4-10.2); Carbon Dioxide 31 mmol/L (22-29); Chloride 101 mmol/L (96-108); Creatinine Clr Calc Pharmacy 110.9; Estimated Glomerular Filt Rate > 60; Glucose Random 81 mg/dL (60-115); Potassium 3.9 mmol/L (3.3-5.1); Sodium 139 mmol/L (135-145)
--- NOTE | 2021-05-18 18:06 | ED.GENADULT ---
HPI - General Adult General Chief complaint: Ear Problems Stated complaint: Dizzy/R side numbness/neck pain Time Seen by Provider: 05/18/21 18:04 Source: patient Mode of arrival: ambulatory Limitations: no limitations History of Present Illness HPI narrative: Patient nonspecific pain on the right side of the back of the head complaining of right arm pain been here 4 times in last week for multiple complaints feels very anxious when arrived in the ER denies anxiety or depression complaining of dizziness headache earache tinnitus arm pain Related Data Previous Rx's Medication Instructions Recorded benzonatate 100 mg capsule 100 mg PO TID PRN #15 cap 05/10/21 (Tessalon Perles) cyclobenzaprine 10 mg tablet 10 mg PO TID PRN #7 tab 05/11/21 polyethylene glycol 3350 17 17 g PO DAILY 9 Days #153 g 05/16/21 gram/dose oral powder (Miralax) Allergies Allergy/AdvReac Type Severity Reaction Status Date / Time No Known Allergies Allergy Verified 05/11/21 04:20 Review of Systems Review of Systems: Yes all other systems are reviewed and are negative [facility] Past Medical History Medical History Anxiety Costochondritis Depression Social History Social History Alcohol intake: former Patient Tobacco Use Status: Never used Tobacco Substance Use Type: Marijuana Advance Directives: No Advance Directives Information Provided: No Physical Exam Vital Signs: Vital Signs: Last Vital Signs Temp 98.4 F 05/18/21 14:31 Pulse 71 05/18/21 14:31 Resp 18 05/18/21 14:31 BP 128/103 H 05/18/21 14:31 Pulse Ox 100 05/18/21 14:31 Body Mass Index 18.4 Appearance: Alert. Oriented X3. No acute distress. Very anxious Eyes: PERRLA, No Nystagmus ENT: Pharynx normal. Oral Mucosa moist Neck: Normal inspection. Neck supple. CVS: Normal heart rate and rhythm. Pulses normal. Respiratory: No respiratory distress. Equal air entry bilateral, no wheezing/rales/rhonchi Abdomen: Soft and nontender. Bowel sounds are present, no mass palpable, no CVA tenderness Skin: Skin warm and dry. Normal skin color. Normal skin turgor. Extremities: No lower extremity edema. No calf tenderness Neuro: Oriented X 3. No motor deficit. No sensory deficit Medical Decision Making Lab Data Result diagrams: 05/18/21 16:12 05/18/21 16:12 Labs: Lab Results 05/18/21 05/18/21 Range/Units 16:12 16:12 WBC 5.3 (4.8-10.8) X10*3/uL RBC 4.47 L (4.60-5.80) X10*6/uL Hgb 13.8 L (14.0-18.0) g/dl Hct 40.5 L (42.0-52.0) % MCV 90.6 (80.0-98.0) fL MCH 30.9 (27.0-33.0) pg MCHC 34.1 (31.0-36.0) g/dl RDW 12.3 (11.0-16.0) % Plt Count 246 (160-400) X10*3/uL MPV 9.5 (9.4-12.4) fL Absolute Nucleated RBC 0.000 (0.0-0.012) X10*3/uL Nucleated RBC % (auto) 0.0 (0.0-0.2) /100WBC Sodium 139 (135-145) mmol/L Potassium 3.9 (3.3-5.1) mmol/L Chloride 101 (96-108) mmol/L Carbon Dioxide 31 H (22-29) mmol/L Anion Gap 11 L (12-20) BUN 7 L (9-16) mg/dL Creatinine 0.93 (0.5-1.4) mg/dL Estim Creat Clear Calc 110.9 Estimated GFR > 60 Random Glucose 81 (60-115) mg/dL Calcium 9.9 (8.4-10.2) mg/dL Discharge Plan Discharge Clinical Impression: Musculoskeletal neck pain Patient Disposition: Home, Self-Care Instructions: Anxiety (ED), Neck Pain (ED) Additional Instructions: Take medication to relax, which will relax her muscles and follow-up with your PCP Prescriptions: No Action cyclobenzaprine 10 mg tablet 10 mg PO TID PRN (Reason: muscle spasm) Qty: 7 RF: 0 polyethylene glycol 3350 [Miralax] 17 gram/dose powder 17 g PO DAILY 9 Days Qty: 153 RF: 0 benzonatate [Tessalon Perles] 100 mg capsule 100 mg PO TID PRN (Reason: cough) Qty: 15 RF: 0 Interventions: ED Discharge Assessment Last Done: 05/18/21 18:14 Discharge Date/Time: 05/18/21 18:15
== END 2021-05-18 18:15 | disposition home or self-care (01) ==
PROVIDERS: Emergency Provider Internal Medicine
DX: R42 Dizziness and giddiness (principal); M54.50 Low back pain, unspecified; M54.2 Cervicalgia; Z79.899 Other long term (current) drug therapy
CPT/HCPCS: 36415; 80048; 85027; 99283

== ENCOUNTER 2021-06-01 19:12 | Emergency (ER) | payer MEDICAID, SELFPAY ==
--- NOTE | 2021-06-01 | ECG_ITS ---
Test Reason : CHEST PAIN Blood Pressure : / mmHG Vent. Rate : 061 BPM Atrial Rate : 061 BPM P-R Int : 208 ms QRS Dur : 104 ms QT Int : 396 ms P-R-T Axes : 055 063 052 degrees QTc Int : 398 ms Normal sinus rhythm Early repolarization Normal ECG When compared with ECG of 01-JUN-2021 19:19, No significant changes seen Referred By: Generic ED Physician Electronically Signed By:DEE DEE SAUNDERS MD
--- NOTE | ~2021-06-01 | XR_ITS ---
EXAMINATION: XR CHEST CLINICAL INFORMATION: Left-sided chest pain COMPARISON: 05/10/2021 TECHNIQUE: 2 views of the chest were obtained. FINDINGS: No significant abnormality is noted involving the heart, lungs, mediastinum, bony thorax or soft tissues. XR/XR chest 2V IMPRESSION: Unremarkable examination.
[2021-06-01 19:25] VITALS: BP 126/75; PULSE 60; RESP 18; TEMP 36.8; O2SAT 100; BMI 19.1
[2021-06-01 19:58] LABS: COVID-19 Test Negative (Negative)
[2021-06-01 20:23] VITALS: BP 119/69; PULSE 70; TEMP 37; O2SAT 100
--- NOTE | 2021-06-01 20:45 | ED_ITS ---
HPI - General Adult General Chief complaint: General Medical Stated complaint: chest pain,dizziness,sob Time Seen by Provider: 06/01/21 20:03 Source: patient Mode of arrival: ambulatory Limitations: no limitations History of Present Illness HPI narrative: 21-year-old male with history of costochondritis and anxiety presents to the ER with intermittent chest pains, shortness of breath that have been going on for the last 1-2 months. He also reports 2 episodes of dizziness that happened once yesterday and once today. They lasted for about 30 minutes and occurred while he was at rest. Of note this is the patient's 6th visit to the emergency room in last 1 month. He admits to worsening anxiety would like someone to talk to about it. He also has increased depression, decided suicidality or homicidality. He is not currently on any medications. He currently has no chest pain, no shortness of breath, no dizziness. MD complaint: Chest pain, shortness of breath, dizziness, anxiety Onset (ago): month(s) Radiation: non-radiation Severity: moderate Pain Consistency: intermittent Relieving factors: none Exacerbating factors: none Associated symptoms: chest pain and shortness of breath Treatments prior to arrival: none Related Data Previous Rx's Medication Instructions Recorded benzonatate 100 mg capsule 100 mg PO TID PRN #15 cap 05/10/21 (Kaycee Zapata) cyclobenzaprine 10 mg tablet 10 mg PO TID PRN #7 tab 05/11/21 polyethylene glycol 3350 17 17 g PO DAILY 9 Days #153 g 05/16/21 gram/dose oral powder (Miralax) hydroxyzine HCl 25 mg tablet 25 mg PO BID PRN #14 tab 06/01/21 Allergies Allergy/AdvReac Type Severity Reaction Status Date / Time No Known Allergies Allergy Verified 05/11/21 04:20 Review of Systems Review of Systems: Constitutional: No Fever, No Chills ENT/Mouth: No sore throat, No Rhinorrhea, No Swallowing Difficulty Cardiovascular: + Chest Pain, + SOB, No Orthopnea, No Edema Respiratory: No Cough, No Sputum, No Wheezing, No dyspnea Gastrointestinal: No Nausea, No Vomiting, No Diarrhea, No abdominal Pain Musculoskeletal: No joint pain, No Myalgias Skin: No Skin Lesions, No rash Neuro: No Weakness, No Numbness, No Dizziness, No Headache Psych: + Anxiety/Panic, + Depression Heme/Lymph: No Bruising, No Lymphadenopathy PMFSH Past Medical History Medical History Anxiety Costochondritis Depression Social History Social History Alcohol intake: never Patient Tobacco Use Status: Never used Tobacco Use of substances other than those prescribed or required for medical reasons: No Substance Use Type: Marijuana Advance Directives: No Advance Directives Information Provided: No Physical Exam Vital Signs: Vital Signs: Last Vital Signs Temp 98.6 F 06/01/21 20:23 Pulse 70 06/01/21 20:23 Resp 18 06/01/21 19:25 BP 119/69 06/01/21 20:23 Pulse Ox 100 06/01/21 20:23 Body Mass Index 19.1 Appearance: Alert. Oriented X3. No acute distress. Eyes: Pupils equal, round and reactive to light. EOMI, no nystagmus ENT: Pharynx normal. Neck: Normal inspection. Neck supple. CVS: Normal heart rate and rhythm. Pulses normal. Respiratory: No respiratory distress. Breath sounds normal. No chest wall tenderness. Abdomen: Soft and nontender. +BS x4 Skin: Skin warm and dry. Normal skin color. Normal skin turgor. No rashes. Extremities: No lower extremity edema. No calf tenderness. Neuro: Oriented X 3. Grossly normal, nonfocal. Ambulates with steady gait Course Course Course Narrative: 21 y/o male with history of costochondritis, history of anxiety that is not being treated who presents to the ER for the 6th time in 1 month c/o multiple complaints including intermittent SOB, chest pains and dizziness. VS are normal on arrival. He appears well with a benign PE. He admits to increased anxiety and depression, no SI. He has had several workups and recent blood work that is unremarkable. Doubt cardiac etiology. Will check DDIMER to r/o PE although clinical suspicion is very low. CXR ordered as well. Lungs are clear. Reevaluation(s) Reevaluation #1: DDIMER <200. CXR normal. His symptoms are most likely related to anxiety. He is asking for a referral to therapy. [facility] pamphlet provided. Will start PRN hydroxyzine as well. Patient is agreeable. He is stable for discharge home. Medical Decision Making Lab Data Labs: Lab Results 06/01/21 06/01/21 Range/Units 19:29 20:45 D-Dimer < 200 NG/ML COVID-19 ([facility]) Negative (Negative) COVID-19 Clin Com See Note Critical Care Time Critical Care Time Critical Care Time: No Discharge Plan Discharge Clinical Impression: Anxiety Patient Disposition: Home, Self-Care Instructions: Cognitive Behavioral Therapy (ED), Anxiety (ED) Additional Instructions: Your lab work today was normal. Your chest x-ray was normal. Your symptoms are most likely related to underlying anxiety. Recommend reaching out to [facility] for therapy. Recommend trial of the prescribed medication as needed for anxiety. Follow-up with your doctor next week. If you develop new or worsening symptoms call 911 or come back to the ER for further evaluation. Prescriptions: New hydroxyzine HCl 25 mg tablet 25 mg PO BID PRN (Reason: anxiety) Qty: 14 RF: 0 No Action cyclobenzaprine 10 mg tablet 10 mg PO TID PRN (Reason: muscle spasm) Qty: 7 RF: 0 polyethylene glycol 3350 [Miralax] 17 gram/dose powder 17 g PO DAILY 9 Days Qty: 153 RF: 0 benzonatate [Tessalon Perles] 100 mg capsule 100 mg PO TID PRN (Reason: cough) Qty: 15 RF: 0 Referrals: Beth Rodriguez [Primary Care Provider] - 2 days
[2021-06-01 20:59] LABS: D Dimer < 200 NG/ML
== END 2021-06-01 21:52 | disposition home or self-care (01) ==
PROVIDERS: Physician Assistant; Emergency Provider Internal Medicine; PCP Nurse Practitioner Family
DX: R42 Dizziness and giddiness (principal); F41.1 Generalized anxiety disorder; F43.0 Acute stress reaction; R06.02 Shortness of breath; R07.9 Chest pain, unspecified; Z20.822 Contact with and (suspected) exposure to COVID-19; Z79.899 Other long term (current) drug therapy
CPT/HCPCS: 36415; 71046; 85379; 87635; 93005; 99283; 99284

== ENCOUNTER 2021-08-22 23:49 | Emergency (ER) | payer MEDICAID, SELFPAY ==
--- NOTE | ~2021-08-22 | XR_ITS ---
EXAMINATION: XR CHEST CLINICAL INFORMATION: Cough, shortness of breath COMPARISON: 06/01/2021 TECHNIQUE: Frontal view of the chest was obtained. FINDINGS: The lungs are clear with no focal consolidation. No evidence of pneumothorax, pulmonary edema, or pleural effusions. The cardiomediastinal silhouette is unremarkable. No acute osseous findings. XR/XR chest 1V IMPRESSION: No acute cardiopulmonary findings.
[2021-08-22 23:51] VITALS: BP 143/91; PULSE 88; RESP 20; TEMP 36.3; O2SAT 98; BMI 20.5
--- NOTE | 2021-08-23 00:05 | ED_ITS ---
HPI - General Adult General Chief complaint: Headache <KEZIA Spivey Last Filed: 08/23/21 01:55> Stated complaint: Chest Pain Headache <KEZIA Spivey Last Filed: 08/23/21 01:55> Time Seen by Provider: 08/23/21 00:02 <KEZIA Spivey Last Filed: 08/23/21 01:55> Source: patient <KEZIA Spivey Last Filed: 08/23/21 01:55> Mode of arrival: ambulatory <KEZIA Spivey Last Filed: 08/23/21 01:55> Limitations: no limitations <KEZIA Spivey Last Filed: 08/23/21 01:55> History of Present Illness HPI narrative: This is a 21-year-old male presenting to the emergency department with multiple complaints tells me his main complaint is chest pressure, headache and shortness of breath. Patient tells me that he feels pressure to the center of his chest it does not radiate. He tells me he is experiencing headache, he tells me he feels a burning sensation to the back of his head, no vision changes or dizziness. He reports neck stiffness, but no pain. He also reports shortness of breath particularly with exertion and a dry cough nonproductive in nature. He tells me that this has all been going on since 9:00 p.m. today progressively worsening. He denies fevers, chills, nausea, vomiting, vision changes, di zziness, weakness. He is not vaccinated against COVID-19. Patient tells me he is under a lot of stress and is slighlty anxious. <KEZIA Spivey Last Filed: 08/23/21 01:55> Onset (ago): hour(s) (3) <KEZIA Spivey Last Filed: 08/23/21 01:55> Radiation: non-radiation <KEZIA Spivey Last Filed: 08/23/21 01:55> Severity: moderate <KEZIA Spivey Last Filed: 08/23/21 01:55> Quality: other (pressure ) <KEZIA Spivey Last Filed: 08/23/21 01:55> Pain Consistency: constant <KEZIA Spivey Last Filed: 08/23/21 01:55> Relieving factors: none <KEZIA Spivey Last Filed: 08/23/21 01:55> Exacerbating factors: none <KEZIA Spivey Last Filed: 08/23/21 01:55> Associated symptoms: chest pain, cough and headaches <KEZIA Spivey Last Filed: 08/23/21 01:55> Treatments prior to arrival: none <KEZIA Spivey Last Filed: 08/23/21 01:55> Related Data Home medications: Previous Rx's Medication Instructions Recorded benzonatate 100 mg capsule 100 mg PO TID PRN #15 cap 05/10/21 (Kaycee Zapata) cyclobenzaprine 10 mg tablet 10 mg PO TID PRN #7 tab 05/11/21 polyethylene glycol 3350 17 17 g PO DAILY 9 Days #153 g 05/16/21 gram/dose oral powder (Miralax) hydroxyzine HCl 25 mg tablet 25 mg PO BID PRN #14 tab 06/01/21 <KEZIA Spivey Last Filed: 08/23/21 01:55> Allergies/adverse reactions: Allergies Allergy/AdvReac Type Severity Reaction Status Date / Time No Known Allergies Allergy Verified 05/11/21 04:20 <KEZIA Spivey Last Filed: 08/23/21 01:55> Review of Systems Verdana 4l Review of Systems: Verdana 4d Verdana 4d Constitutional : No Weight loss, No Fever, No Chills, No Fatigue, No Malaise ENT/Mouth : No sore throat, No Rhinorrhea Eyes: No Eye Pain, No Swelling, No Redness Cardiovascular : + Chest Pain, + SOB, No Dyspnea on Exertion, No Orthopnea,, No Edema, No Palpitations Respiratory : + Cough, No Sputum, No Wheezing Gastrointestinal : No Nausea, No Vomiting, No Diarrhea, No Constipation, No abdominal Pain, No Hematochezia, No Melena Genitourinary : No Dysuria, No Urinary Frequency, No Hematuria, Musculoskeletal : No joint pain, No Myalgias, No Joint Swelling, + neck stiffness Skin : No Skin Lesions, No rash Neuro : No Weakness, No Numbness, No Dizziness, + Headache Psych : + Anxiety, No Panic, No Depression All other systems reviewed and are negative <KEZIA Spivey - Last Filed: 08/23/21 01:55> Yes all other systems are reviewed and are negative <KEZIA Spivey - Last Filed: 08/23/21 01:55> FOR[facility]LY [facility] Past Medical History Attestation statement: The following information was validated with the patient. <KEZIA Spivey - Last Filed: 08/23/21 01:55> Source: old records reviewed and nursing notes reviewed <KEZIA Spivey - Last Filed: 08/23/21 01:55> Medical History: Medical History Anxiety Costochondritis Depression <KEZIA Spivey - Last Filed: 08/23/21 01:55> Social History Social History: Social History Alcohol intake: never Patient Tobacco Use Status: Never used Tobacco Substance Use Type: Marijuana Advance Directives: No Advance Directives Information Provided: No <KEZIA Spivey - Last Filed: 08/23/21 01:55> Physical Exam Verdana 4l Vital Signs: Verdana 4d Verdana 4d Vital Signs: Verdana 4d Verdana 4Bd Last Vital Signs Verdana 4d Coil Binder New 4d Coil Binder New 4d Temp 98.2 F 08/23/21 01:57 Coil Binder New 4d Pulse 80 08/23/21 01:57 Coil Binder New 4d Resp 16 08/23/21 01:57 BP 129/78 08/23/21 01:57 Pulse Ox 98 08/23/21 01:57 BMI result Body Mass Index 20.5 VSS <KEZIA Spivey - Last Filed: 08/23/21 01:55> Vital Signs: Last Vital Signs Temp 98.2 F 08/23/21 01:57 Pulse 80 08/23/21 01:57 Resp 16 08/23/21 01:57 BP 129/78 08/23/21 01:57 Pulse Ox 98 08/23/21 01:57 BMI result Body Mass Index 20.5 <Kristen Avina MD - Last Filed: 08/23/21 02:22> Appearance: Alert.? Oriented X3.? No acute distress.?+ patient appears anxious. Head: Normocephalic, atraumatic, no step-offs or deformities Eyes: Pupils equal, round and reactive to light.? ENT: Pharynx normal.? Neck: Normal inspection.? Neck supple.? CVS: Normal heart rate and rhythm.? Pulses normal.? Respiratory: No respiratory distress.? Breath sounds normal.? Abdomen: Soft and nontender.? Skin: Skin warm and dry.? Normal skin color.? Normal skin turgor.? Extremities: No lower extremity edema.? No calf ttp, negative miranda b/l. 5/5 strength to bilateral upper and lower extremities Back/Neck: No midline tenderness, no C-spine tenderness, full range of motion, no CVA tenderness bilaterally. Neck with full range of motion. Negative Kernig and Brudzinski sign Neuro: Oriented X 3.? No motor deficit.? No sensory deficit. 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 Steady/normal tandem gait. <KEZIA Spivey - Last Filed: 08/23/21 01:55> Course Reevaluation(s) Reevaluation #1: Patients CBC at baseline. No acute electrolyte abnormalities. Trop negative. EKG non ischemic. Unlikely ACS. COVID negative. CXR with no acute findings. Patient refusing Reglan and Benadryl. Took Tylenol. <KEIZA Spivey - Last Filed: 08/23/21 01:55> Time: 01:11 <KEZIA Spivey - Last Filed: 08/23/21 01:55> Reevaluation #2: Patient is now requesting Reglan and Benadryl which she refused earlier. I put these orders back in. I have given sign out to . At this time pending patient being medicated and improvement. If patient improves he can be discharged home. <KEZIA Sipvey - Last Filed: 08/23/21 01:55> Time: 01:52 <KEZIA Spivey - Last Filed: 08/23/21 01:55> Reevaluation #3: Patient states that he no longer has headache. Patient states that he is next feels somewhat stiff but only to both sides of the neck. Patient is able to flex and extend the neck with no pain, and with normal range of motion. Patient received 1 dose of 2 mg of Valium. At this time, patient's main complaint at this time is his arm hurts where he got the IM medication Patient will be discharged now <Kristen Avina MD - Last Filed: 08/23/21 02:22> Time: 02:20 <Kristen Avina MD - Last Filed: 08/23/21 02:22> Medical Decision Making MDM Narrative Medical decision making narrative: [id number] 21 yo m pmhx anxiety, depression presents to the ED w/ covid like sx headache and neck pain sice around 9pm tonight. Patient review of systems is overwhelmingly positive. PE benign. No meningeal signs. No midline tenderness. Patient's vital signs physical and history not consistent with pulmonary embolism, PERC score of 0, unlikely PE/DVT. No meningeal signs, patient is afebrile unlikley meningits. Unlikely ACS per patients history and age however, will be ruled out. Unlike ICH no history of trauma, headache gradual in onset and no vision changes or weakness, neuro nonfocal. Unlikle posterior stroke normal neuro exam, normal finger to nose and heel to martinez, normal tandem gait, no dizziness or vision changes. Plan is to obtain labs, EKG, tropnin, CXR, covid Patient low risk for ICH or intracranial pathology, no trauma, vision changes, and neuro exam is nonfocal. No need for head CT at this time. <KEZIA Spivey - Last Filed: 08/23/21 01:55> Medical Records Medical records reviewed: Yes I reviewed the patient's medical records. <KEZIA Spivey - Last Filed: 08/23/21 01:55> Lab Data Lab results reviewed: Yes I reviewed the patient's lab results. <KEZIA Spivey - Last Filed: 08/23/21 01:55> Result diagrams: : 08/23/21 00:28 08/23/21 00:28 <KEZIA Spivey - Last Filed: 08/23/21 01:55> Labs: Lab Results 08/23/21 08/23/21 08/23/21 Range/Units 00:28 00:28 00:28 WBC 7.1 (4.8-10.8) X10*3/uL RBC 4.27 L (4.60-5.80) X10*6/uL Hgb 12.7 L (14.0-18.0) g/dl Hct 36.9 L (42.0-52.0) % MCV 86.4 (80.0-98.0) fL MCH 29.7 (27.0-33.0) pg MCHC 34.4 (31.0-36.0) g/dl RDW 11.9 (11.0-16.0) % Plt Count 256 (160-400) X10*3/uL MPV 8.7 L (9.4-12.4) fL Immature Gran % (Auto) 0.1 (0.0-0.4) % Neut % (Auto) 81.3 H (45-73) % Lymph % (Auto) 12.5 L (20-40) % [place] % (Auto) 5.0 (2-11) % Eos % (Auto) 0.7 (0-4) % Baso % (Auto) 0.4 (0-2) % Lymph # (Auto) 0.9 L (1.2-4.9) X10*3/uL [place] # (Auto) 0.4 (0.1-1.2) X10*3/uL Eos # (Auto) 0.1 (0.0-0.4) X10*3/uL Baso # (Auto) 0.0 (0.0-0.2) X10*3/uL Abs Immat Gran (auto) 0.01 (0.00-0.03) X10*3/uL Absolute Neuts (auto) 5.7 (2.0-8.3) x10*3/uL Absolute Nucleated RBC 0.000 (0.0-0.012) X10*3/uL Nucleated RBC % (auto) 0.0 (0.0-0.2) /100WBC Sodium 137 (135-145) mmol/L Potassium 3.8 (3.3-5.1) mmol/L Chloride 102 (96-108) mmol/L Carbon Dioxide 26 (22-29) mmol/L Anion Gap 13 (12-20) BUN 12 (9-16) mg/dL Creatinine 1.06 (0.5-1.4) mg/dL Estim Creat Clear Calc 107.9 Estimated GFR > 60 Random Glucose 125 H D (60-115) mg/dL Calcium 9.9 (8.4-10.2) mg/dL Magnesium 2.2 (1.6-2.6) mg/dL Total Bilirubin 0.8 (0.0-1.0) mg/dL AST 37 (5-37) U/L ALT 40 (0-40) U/L Alkaline Phosphatase 73 D (39-117) U/L Troponin I High Sens < 3.5 (<3.5-35.0) ng/L Total Protein 7.0 (6.5-8.0) g/dL Albumin 4.5 (3.5-5.0) g/dL COVID-19 ([facility]) (Negative) COVID-19 Clin Com 08/23/21 Range/Units 00:39 WBC (4.8-10.8) X10*3/uL RBC (4.60-5.80) X10*6/uL Hgb (14.0-18.0) g/dl Hct (42.0-52.0) % MCV (80.0-98.0) fL MCH (27.0-33.0) pg MCHC (31.0-36.0) g/dl RDW (11.0-16.0) % Plt Count (160-400) X10*3/uL MPV (9.4-12.4) fL Immature Gran % (Auto) (0.0-0.4) % Neut % (Auto) (45-73) % Lymph % (Auto) (20-40) % [place] % (Auto) (2-11) % Eos % (Auto) (0-4) % Baso % (Auto) (0-2) % Lymph # (Auto) (1.2-4.9) X10*3/uL [place] # (Auto) (0.1-1.2) X10*3/uL Eos # (Auto) (0.0-0.4) X10*3/uL Baso # (Auto) (0.0-0.2) X10*3/uL Abs Immat Gran (auto) (0.00-0.03) X10*3/uL Absolute Neuts (auto) (2.0-8.3) x10*3/uL Absolute Nucleated RBC (0.0-0.012) X10*3/uL Nucleated RBC % (auto) (0.0-0.2) /100WBC Sodium (135-145) mmol/L Potassium (3.3-5.1) mmol/L Chloride (96-108) mmol/L Carbon Dioxide (22-29) mmol/L Anion Gap (12-20) BUN (9-16) mg/dL Creatinine (0.5-1.4) mg/dL Estim Creat Clear Calc Estimated GFR Random Glucose (60-115) mg/dL Calcium (8.4-10.2) mg/dL Magnesium (1.6-2.6) mg/dL Total Bilirubin (0.0-1.0) mg/dL AST (5-37) U/L ALT (0-40) U/L Alkaline Phosphatase (39-117) U/L Troponin I High Sens (<3.5-35.0) ng/L Total Protein (6.5-8.0) g/dL Albumin (3.5-5.0) g/dL COVID-19 ([facility]) Negative (Negative) COVID-19 Clin Com See Note <KEZIA Spivey - Last Filed: 08/23/21 01:55> Lab Results 08/23/21 08/23/21 08/23/21 Range/Units 00:28 00:28 00:28 WBC 7.1 (4.8-10.8) X10*3/uL RBC 4.27 L (4.60-5.80) X10*6/uL Hgb 12.7 L (14.0-18.0) g/dl Hct 36.9 L (42.0-52.0) % MCV 86.4 (80.0-98.0) fL MCH 29.7 (27.0-33.0) pg MCHC 34.4 (31.0-36.0) g/dl RDW 11.9 (11.0-16.0) % Plt Count 256 (160-400) X10*3/uL MPV 8.7 L (9.4-12.4) fL Immature Gran % (Auto) 0.1 (0.0-0.4) % Neut % (Auto) 81.3 H (45-73) % Lymph % (Auto) 12.5 L (20-40) % [place] % (Auto) 5.0 (2-11) % Eos % (Auto) 0.7 (0-4) % Baso % (Auto) 0.4 (0-2) % Lymph # (Auto) 0.9 L (1.2-4.9) X10*3/uL [place] # (Auto) 0.4 (0.1-1.2) X10*3/uL Eos # (Auto) 0.1 (0.0-0.4) X10*3/uL Baso # (Auto) 0.0 (0.0-0.2) X10*3/uL Abs Immat Gran (auto) 0.01 (0.00-0.03) X10*3/uL Absolute Neuts (auto) 5.7 (2.0-8.3) x10*3/uL Absolute Nucleated RBC 0.000 (0.0-0.012) X10*3/uL Nucleated RBC % (auto) 0.0 (0.0-0.2) /100WBC Sodium 137 (135-145) mmol/L Potassium 3.8 (3.3-5.1) mmol/L Chloride 102 (96-108) mmol/L Carbon Dioxide 26 (22-29) mmol/L Anion Gap 13 (12-20) BUN 12 (9-16) mg/dL Creatinine 1.06 (0.5-1.4) mg/dL Estim Creat Clear Calc 107.9 Estimated GFR > 60 Random Glucose 125 H D (60-115) mg/dL Calcium 9.9 (8.4-10.2) mg/dL Magnesium 2.2 (1.6-2.6) mg/dL Total Bilirubin 0.8 (0.0-1.0) mg/dL AST 37 (5-37) U/L ALT 40 (0-40) U/L Alkaline Phosphatase 73 D (39-117) U/L Troponin I High Sens < 3.5 (<3.5-35.0) ng/L Total Protein 7.0 (6.5-8.0) g/dL Albumin 4.5 (3.5-5.0) g/dL COVID-19 ([facility]) (Negative) COVID-19 Clin Com 08/23/21 Range/Units 00:39 WBC (4.8-10.8) X10*3/uL RBC (4.60-5.80) X10*6/uL Hgb (14.0-18.0) g/dl Hct (42.0-52.0) % MCV (80.0-98.0) fL MCH (27.0-33.0) pg MCHC (31.0-36.0) g/dl RDW (11.0-16.0) % Plt Count (160-400) X10*3/uL MPV (9.4-12.4) fL Immature Gran % (Auto) (0.0-0.4) % Neut % (Auto) (45-73) % Lymph % (Auto) (20-40) % [place] % (Auto) (2-11) % Eos % (Auto) (0-4) % Baso % (Auto) (0-2) % Lymph # (Auto) (1.2-4.9) X10*3/uL [place] # (Auto) (0.1-1.2) X10*3/uL Eos # (Auto) (0.0-0.4) X10*3/uL Baso # (Auto) (0.0-0.2) X10*3/uL Abs Immat Gran (auto) (0.00-0.03) X10*3/uL Absolute Neuts (auto) (2.0-8.3) x10*3/uL Absolute Nucleated RBC (0.0-0.012) X10*3/uL Nucleated RBC % (auto) (0.0-0.2) /100WBC Sodium (135-145) mmol/L Potassium (3.3-5.1) mmol/L Chloride (96-108) mmol/L Carbon Dioxide (22-29) mmol/L Anion Gap (12-20) BUN (9-16) mg/dL Creatinine (0.5-1.4) mg/dL Estim Creat Clear Calc Estimated GFR Random Glucose (60-115) mg/dL Calcium (8.4-10.2) mg/dL Magnesium (1.6-2.6) mg/dL Total Bilirubin (0.0-1.0) mg/dL AST (5-37) U/L ALT (0-40) U/L Alkaline Phosphatase (39-117) U/L Troponin I High Sens (<3.5-35.0) ng/L Total Protein (6.5-8.0) g/dL Albumin (3.5-5.0) g/dL COVID-19 ([facility]) Negative (Negative) COVID-19 Clin Com See Note <Kristen Avina MD - Last Filed: 08/23/21 02:22> Imaging Data Chest x-ray: Attestation: I personally reviewed and interpreted this imaging study as follows: <KEZIA Spivey - Last Filed: 08/23/21 01:55> Radiologist's impression: FINDINGS: The lungs are clear with no focal consolidation. No evidence of pneumothorax, pulmonary edema, or pleural effusions. The cardiomediastinal silhouette is unremarkable. No acute osseous findings. XR/XR chest 1V IMPRESSION: No acute cardiopulmonary findings. <KEZIA Spivey - Last Filed: 08/23/21 01:55> ECG Data Attestation: I personally reviewed and interpreted this ECG as follows: <KEZIA Spivey - Last Filed: 08/23/21 01:55> Prior ECG tracings: available for review <KEZIA Spivey - Last Filed: 08/23/21 01:55> Interpretation: Ventricular rate of 81, UT normal, QRS normal, QT/QTC normal. EKG shows normal sinus rhythm, no ST elevations or inversions concerning for ischemia. No significant changes when compared to EKG from June 01, 2021. <KEZIA Spivey - Last Filed: 08/23/21 01:55> Critical Care Time Critical Care Time Critical Care Time: No <KEZIA Spivey Last Filed: 08/23/21 01:55> Discharge Plan Discharge Clinical Impression: Migraine, Chest pain not due to acute coronary syndrome, Cough <KEZIA Spivey Last Filed: 08/23/21 01:55> Patient Disposition: Still a Patient <KEZIA Spivey Last Filed: 08/23/21 01:55> Instructions: Chest Pain (ED), Migraine Headache (ED) <KEZIA Spivey Last Filed: 08/23/21 01:55> Additional Instructions: Take your medications as prescribed. Follow-up with your primary care provider this week. Return to the emergency department with new or worsening symptoms. In case of emergency call 911 Take ibuprofen every 6 hours, Tylenol every 4 hours as needed for pain. <KEZIA Spivey Last Filed: 08/23/21 01:55> Prescriptions: No Action cyclobenzaprine 10 mg tablet 10 mg PO TID PRN (Reason: muscle spasm) Qty: 7 0RF polyethylene glycol 3350 [Miralax] 17 gram/dose powder 17 g PO DAILY 9 Days Qty: 153 0RF hydroxyzine HCl 25 mg tablet 25 mg PO BID PRN (Reason: anxiety) Qty: 14 0RF benzonatate [Tessalon Perles] 100 mg capsule 100 mg PO TID PRN (Reason: cough) Qty: 15 0RF <KEZIA Spivey Last Filed: 08/23/21 01:55> Referrals: Beth Rodriguez [Primary Care Provider] - 2 days <KEZIA Spivey Last Filed: 08/23/21 01:55> Stand Alone Forms: Work/School Release <KEZIA Spivey Last Filed: 08/23/21 01:55>
--- NOTE | 2021-08-23 00:07 | ECG_ITS ---
Test Reason : headache Blood Pressure : / mmHG Vent. Rate : 081 BPM Atrial Rate : 081 BPM P-R Int : 180 ms QRS Dur : 096 ms QT Int : 400 ms P-R-T Axes : 067 049 034 degrees QTc Int : 464 ms Normal sinus rhythm Normal ECG When compared with ECG of 01-JUN-2021 19:23, QT has lengthened Referred By: Derrell Shelley Electronically Signed By:LAUREN SEAMAN
[2021-08-23 00:32] LABS: MANUAL DIFF FLAG NO
[2021-08-23 00:38] LABS: Basophils Percent Auto 0.4 % (0-2); Eosinophils Absolute Auto 0.1 X10*3/uL (0.0-0.4); Eosinophils Percent Auto 0.7 % (0-4); Hematocrit 36.9 % (42.0-52.0); Hemoglobin 12.7 g/dl (14.0-18.0); Imm Gran Abs Auto 0.01 X10*3/uL (0.00-0.03); Imm Gran Pct Auto 0.1 % (0.0-0.4); Lymphocytes Absolute Auto 0.9 X10*3/uL (1.2-4.9); Lymphocytes Percent Auto 12.5 % (20-40); Mean Corpuscular HGB Conc 34.4 g/dl (31.0-36.0); Mean Corpuscular Hemoglobin 29.7 pg (27.0-33.0); Mean Corpuscular Volume 86.4 fL (80.0-98.0); Mean Platelet Volume 8.7 fL (9.4-12.4); Monocytes Absolute Auto 0.4 X10*3/uL (0.1-1.2); Neutrophils Absolute Auto 5.7 x10*3/uL (2.0-8.3); Neutrophils Percent Auto 81.3 % (45-73); Platelet Count 256 X10*3/uL (160-400); Red Blood Count 4.27 X10*6/uL (4.60-5.80); Red Cell Distribution Width 11.9 % (11.0-16.0); White Blood Count 7.1 X10*3/uL (4.8-10.8)
[2021-08-23] MEDS: Acetaminophen 325 MG TABLET 650 MG PO (00:45)
--- NOTE | 2021-08-23 00:49 | PC.NURSE ---
pt refused IM Reglan and IM Benadryl. provider notified
[2021-08-23 01:04] LABS: COVID-19 Test Negative (Negative)
[2021-08-23 01:07] LABS: Alanine Aminotransferase 40 U/L (0-40); Albumin Level 4.5 g/dL (3.5-5.0); Alkaline Phosphatase 73 U/L (39-117); Aspartate Amino Transferase 37 U/L (5-37); Bilirubin Total 0.8 mg/dL (0.0-1.0); Blood Urea Nitrogen 12 mg/dL (9-16); Calcium 9.9 mg/dL (8.4-10.2); Creatinine Clr Calc Pharmacy 107.9; Estimated Glomerular Filt Rate > 60; Glucose Random 125 mg/dL (60-115); Magnesium 2.2 mg/dL (1.6-2.6)
[2021-08-23 01:09] LABS: Troponin-I High Sensitivity < 3.5 ng/L (<3.5-35.0)
[2021-08-23 01:17] LABS: Anion Gap 13 (12-20); Carbon Dioxide 26 mmol/L (22-29); Chloride 102 mmol/L (96-108); Potassium 3.8 mmol/L (3.3-5.1); Sodium 137 mmol/L (135-145)
[2021-08-23 01:57] VITALS: BP 129/78; PULSE 80; RESP 16; TEMP 36.8; O2SAT 98
[2021-08-23] MEDS: Metoclopramide HCl 10 MG/2 ML VIAL IM (01:59)
[2021-08-23] MEDS: diphenhydrAMINE HCL 50 MG/ML VIAL IM (02:01)
[2021-08-23] MEDS: diazePAM 2 MG TABLET PO (02:13)
== END 2021-08-23 02:38 | disposition still patient (30) ==
PROVIDERS: Physician Assistant; Emergency Provider Emergency Medicine; PCP Nurse Practitioner Family
DX: G43.909 Migraine, unspecified, not intractable, without status migrainosus (principal); R07.89 Other chest pain; Z20.822 Contact with and (suspected) exposure to COVID-19; F41.9 Anxiety disorder, unspecified
CPT/HCPCS: 36415; 71045; 80053; 83735; 84484; 85025; 87635; 93005; 96372; 99284; J1200; J2765

== ENCOUNTER 2021-08-23 20:42 | Emergency (ER) | payer MEDICAID, SELFPAY ==
--- NOTE | ~2021-08-23 | CT_ITS ---
EXAMINATION: CT HEAD WITHOUT CONTRAST CLINICAL INFORMATION: Headache. COMPARISON: None TECHNIQUE: Contiguous axial imaging was performed from the skull base to vertex without intravenous administration of contrast. Coronal and sagittal reformatted images are performed at the CT scanner This CT examination was performed using dose optimization techniques as appropriate, variously including the following: *Automated exposure control *Adjustment of mA and/or kV according to patient size (this includes techniques or standardized protocols for targeted exams where dose is matched to indication/reason for exam; i.e. extremities or head) *Use of iterative reconstruction technique DLP: 869 mGy-cm FINDINGS: There is no evidence of acute intracranial hemorrhage or territorial infarction. No abnormal mass effect or midline shift is seen. Long to white matter differentiation is well preserved. No extra-axial fluid collections are identified. The ventricles are normal in size. There is no abnormal attenuation within the brain parenchyma. The osseous structures and soft tissues are normal. The mastoid air cells and visualized portions of the paranasal sinuses are well aerated. CT/CT head/brain wo con IMPRESSION: No acute intracranial pathology.
[2021-08-23 20:49] VITALS: BP 140/90; PULSE 80; O2SAT 98
[2021-08-23 21:12] VITALS: BP 126/73; PULSE 80; RESP 16; TEMP 36.9; O2SAT 98; BMI 20.4
[2021-08-23 21:52] VITALS: BP 131/70; PULSE 89; RESP 16; TEMP 36.7; O2SAT 97
--- NOTE | 2021-08-23 22:10 | ED_ITS ---
HPI - Headache General Chief Complaint: Headache Stated Complaint: DEXTER,NECK,BACK PAIN X'S 1 DAY, NO INJURY PER EMS Time Seen by Provider: 08/23/21 21:50 Source: patient Mode of arrival: EMS Limitations: no limitations History of Present Illness HPI Narrative: 21-year-old male who presents emergency department for evaluation of headache and neck pain. The patient states that yesterday at around 21:00 he used intra nasal cocaine. He states that he used small amount. Approximate 20 minutes after using intranasal cocaine he developed headache and chest pain. He states the headache came on gradually. He was seen here in the emergency department yesterday for similar symptoms but did not tell the providers that he used cocaine. The patient had blood work which was normal including a negative troponin, EKG was unremarkable in COVID-19 was negative. Chest x-ray was also negative. Patient was treated with Toradol, regular and Benadryl with improvement of his symptoms. He states that he went home and was feeling better but approximately 2-3 hours after he got home his pain returned. He states that he has had a constant headache which she describes as a burning sensation to the septal area of his scalp, he has had nausea with no vomiting. He states that his neck feels stiff. He states that he occasionally feels off balance when he stands up. He states he gets occasional blurred vision when he stands up. He denied fever, chills, chest pain, shortness of breath, myalgias, arthralgias, numbness, weakness, loss of bowel or bladder control. MD elicited complaint: headache Pertinent past history: other (Pain started 20 minutes after using intranasal cocaine yesterday) Onset (ago): day(s) (2) Onset description: gradually Location: occipital Severity: severe Pain scale (0-10): 8 Quality & Timing: other (Burn) Exacerbating factors: none Relieving factors: nothing Context: other (After using intranasal cocaine) Associated symptoms: nausea, neck stiffness and other (Occasional blurred vision and change in balance with stand) Treatments prior to arrival: other (Seen in the ED yesterday) Related Data Previous Rx's Medication Instructions Recorded benzonatate 100 mg capsule 100 mg PO TID PRN #15 cap 05/10/21 (Tessalon Benny) cyclobenzaprine 10 mg tablet 10 mg PO TID PRN #7 tab 05/11/21 polyethylene glycol 3350 17 17 g PO DAILY 9 Days #153 g 05/16/21 gram/dose oral powder (Miralax) hydroxyzine HCl 25 mg tablet 25 mg PO BID PRN #14 tab 06/01/21 metoclopramide HCl 10 mg tablet 10 mg PO Q6H PRN #14 tab 08/23/21 (Reglan) Allergies Allergy/AdvReac Type Severity Reaction Status Date / Time No Known Allergies Allergy Verified 05/11/21 04:20 Review of Systems Verdana 4l Review of Systems: Yes all other systems are reviewed and Verdana 4d are negative [facility] Past Medical History [facility] Narrative: Social history: Patient denies tobacco use. He denies alcohol use. Patient states that he does use drugs. He states that he occasionally uses intranasal cocaine and did use intranasal cocaine yesterday as discussed in the HPI. He also states that he buys Percocet off the street in uses this once or twice a month. He also smokes marijuana. Medical History Anxiety Costochondritis Depression Social History Social History Alcohol intake: never Patient Tobacco Use Status: Never used Tobacco Substance Use Type: Marijuana Advance Directives: No Advance Directives Information Provided: No Physical Exam Verdana 4l Vital Signs: Verdana 4d Verdana 4d Vital Signs: Verdana 4d Verdana 4Bd Last Vital Signs Verdana 4d Accredited Legal Secretary New 4d Accredited Legal Secretary New 4d Temp 98.0 F 08/23/21 21:52 Accredited Legal Secretary New 4d Pulse 89 08/23/21 21:52 Accredited Legal Secretary New 4d Resp 16 08/23/21 21:52 BP 131/70 08/23/21 21:52 Pulse Ox 97 08/23/21 21:52 BMI result Body Mass Index 20.4 Const: General: cooperative and no acute distress Orientation/consciousness: oriented to person and oriented to place Limitations: no limitations HENMT: Head: Yes normal to inspection, Yes normocephalic and Yes atraumatic Ears: external ears normal General nose exam: Normal external nose present Face and sinus: Yes normal facial exam Mouth: Normal oral and palatal mucosa present Throat: Yes posterior oropharynx normal Eyes: General: appearance normal, both eyes and all related structures Pupils: Equal, round and reactive pupils present Neck: Neck: Yes normal visual inspection, Yes no lymphadenopathy, Yes trachea midline and Yes supple Chest: Chest palpation & inspection: normal inspection of the chest and normal palpation of entire chest wall Resp: Effort & Inspection: normal respiratory effort and able to speak in complete sentences Auscultation: clear to auscultation bilaterally Cardio: Rate: regular rate Rhythm: regular rhythm Heart sounds: S1 normal heart sound present, S2 normal heart sound present and no murmurs GI: Inspection: Yes normal to inspection Palpation (GI): Soft to palpation, nontender and no guarding Auscultation: normal bowel sounds : General: Yes no CVA tenderness Back/Spine/Pelvis: Back: no CVA tenderness Skin: General skin exam: no rashes or lesions noted Neuro: General: oriented to person and oriented to place Cranial nerves: Yes CN's II-XII intact bilaterally and Yes Equal, round and reactive pupils present Cognition (Neuro): normal cognition Gait exam (Neuro): Normal gait present, not ataxic, not staggering and Other gait observations present (No difficulty walking a straight line) Motor exam (neuro): 5/5 motor strength present throughout Coordination: [id number]-[id number] test normal, jvtu-oc-[id number] test normal, tandem gait normal, does not sway with eyes open, Romberg test negative and Normal rapid alternating movements of the distal upper extremity present (Neuro) Extrem: General: Yes normal to inspection Psych: Appearance: grossly normal Speech and movement: Normal speech and movement present Affect: normal affect Attitude: cooperative Thought process: Normal thought process present Thought content: Normal thought content present Course Course Course Narrative: 21-year-old male who presents emergency department for evaluation of headache an d neck pain x2 days with onset of the headache after using intranasal cocaine. The patient states the pain came on gradually. He was seen in the emergency department yesterday for similar complaints and was also having chest pain yesterday as well. The patient did not tell the providers that he used intranasal cocaine prior to the onset of his headaches. The patient had a negative cardiac workup yesterday and did improve with medications in the emergency department but he states that his pain came back several hours after leaving the emergency department. Patient's vital signs were normal, he was afebrile. Physical examination was normal including a normal neurologic exam and normal cerebellar exam. I did order a CT scan of the brain to further evaluate the patient's headaches. Patient was also ordered to get Toradol 60 mg IM, Reglan 10 mg oral and Benadryl 50 mg orally Discharge Plan Discharge Clinical Impression: Headache, Cocaine use, Opiate use Patient Disposition: Home, Self-Care Instructions: Cocaine Abuse (ED), Acute Headache (ED), Opioid Use Disorder (ED) Additional Instructions: Your CT scan today was normal which is reassuring. Your blood work EKG in COVID-19 from yesterday were all negative as well. Headache instructions: Your symptoms are consistent with a migraine-like headache. I want you to take the following 3 medications together every 6 hours as needed for headache, nausea or vomiting. Reglan (metoclopramide) in 10 mg, 1 pill Benadryl 25 mg, 2 pills Excedrin migraine, 2 pills. After you take these medications, lie down in a dark quiet room and try to fall asleep. These medications will make you sleepy, do not drive or work after taking these medications. Your are being discharged home with intranasal Narcan. If you are going to continue to use Percocet or cocaine, you should make sure that there is a sober person with you that is not using drugs and that this person can administer intranasal Narcan in the event that you stop breathing. Follow-up with your doctor in 2 days. Please return to the emergency department if your symptoms get worse or if you develop any symptoms that are concerning to you. Prescriptions: New metoclopramide HCl [Reglan] 10 mg tablet 10 mg PO Q6H PRN (Reason: nausea and vomiting) Qty: 14 0RF No Action cyclobenzaprine 10 mg tablet 10 mg PO TID PRN (Reason: muscle spasm) Qty: 7 0RF polyethylene glycol 3350 [Miralax] 17 gram/dose powder 17 g PO DAILY 9 Days Qty: 153 0RF hydroxyzine HCl 25 mg tablet 25 mg PO BID PRN (Reason: anxiety) Qty: 14 0RF benzonatate [Tessalon Perles] 100 mg capsule 100 mg PO TID PRN (Reason: cough) Qty: 15 0RF
[2021-08-23] MEDS: Ketorolac Tromethamine 60 MG/2 ML VIAL IM (22:26)
[2021-08-23] MEDS: Metoclopramide HCl 10 MG TABLET PO (22:26)
[2021-08-23] MEDS: Naloxone HCl Nasal TAKE HOME 4 MG SPRAY NOSTRILALT (23:44)
== END 2021-08-23 23:47 | disposition home or self-care (01) ==
PROVIDERS: Emergency Provider Emergency Medicine Emergency Medical Services
DX: R51.9 Headache, unspecified (principal); F14.90 Cocaine use, unspecified, uncomplicated; F11.90 Opioid use, unspecified, uncomplicated
CPT/HCPCS: 70450; 96372; 99284; J1885

== ENCOUNTER 2021-11-05 03:29 | Emergency (ER) | payer MEDICAID, SELFPAY ==
--- NOTE | ~2021-11-05 | XR_ITS ---
EXAMINATION: XR CHEST CLINICAL INFORMATION: Chest pain COMPARISON: 08/23/2021 TECHNIQUE: Frontal view of the chest was obtained. FINDINGS: The lungs are well expanded. There is no focal consolidation, edema, or effusion. No pneumothorax. The cardiomediastinal silhouette is within normal limits. No acute osseous abnormality. XR/XR chest 1V IMPRESSION: Clear lungs.
--- NOTE | 2021-11-05 03:38 | ECG_ITS ---
Test Reason : CHEST PAIN Blood Pressure : / mmHG Vent. Rate : 086 BPM Atrial Rate : 086 BPM P-R Int : 178 ms QRS Dur : 100 ms QT Int : 372 ms P-R-T Axes : 057 056 041 degrees QTc Int : 445 ms Normal sinus rhythm with sinus arrhythmia Normal ECG When compared with ECG of 23-AUG-2021 00:20, No significant change was found Referred By: Generic ED Physician Electronically Signed By:FRANCISCO JAVIER YOUNGBLOOD MD
[2021-11-05 03:40] VITALS: BP 133/91; BP 155/87; PULSE 95; PULSE 97; RESP 16; TEMP 37.1; O2SAT 100; BMI 23.0
[2021-11-05 04:20] LABS: COVID-19 Test Negative (Negative)
[2021-11-05 04:31] LABS: IDNOW Serial# 16C4AD1C; Influenza A Negative (Negative); Influenza B2 Negative (Negative)
[2021-11-05 05:21] VITALS: BP 108/66; PULSE 81; RESP 16; TEMP 36.9; O2SAT 97
[2021-11-05] MEDS: Acetaminophen 325 MG TABLET 975 MG PO (05:45)
[2021-11-05] MEDS: Ibuprofen 400 MG TABLET PO (05:45)
[2021-11-05] MEDS: Ondansetron ODT 4 MG TAB.RAPDIS TRANSLINGU (05:45)
[2021-11-05] MEDS: Lidocaine HCl Viscous 2 % 15 ML SOLUTION 10 ML MUCOUS MEM (05:46)
[2021-11-05] MEDS: Magnesium Hydrox/Alum Hydrox 30 ML ORAL.SUSP PO (05:46)
--- NOTE | 2021-11-05 05:55 | ED.GENADULT ---
HPI - General Adult General Chief complaint: General Medical Stated complaint: vomiting Time Seen by Provider: 11/05/21 05:07 Source: patient and family Mode of arrival: EMS History of Present Illness HPI narrative: 21-year-old male without significant past medical history presents with nausea vomiting twice and feeling like there is something in his chest. He states he feels like his chest is somewhat tight denies any recent travel, fevers, chills, diarrhea and reports that he took a Percocet off of the street yesterday for pain. Related Data Previous Rx's Medication Instructions Recorded benzonatate 100 mg capsule 100 mg PO TID PRN #15 cap 05/10/21 (Tessalon Perles) cyclobenzaprine 10 mg tablet 10 mg PO TID PRN #7 tab 05/11/21 polyethylene glycol 3350 17 17 g PO DAILY 9 Days #153 g 05/16/21 gram/dose oral powder (Miralax) hydroxyzine HCl 25 mg tablet 25 mg PO BID PRN #14 tab 06/01/21 metoclopramide HCl 10 mg tablet 10 mg PO Q6H PRN #14 tab 08/23/21 (Reglan) ondansetron 4 mg oral soluble film 4 mg PO Q8H PRN #30 ea 11/05/21 Allergies Allergy/AdvReac Type Severity Reaction Status Date / Time No Known Allergies Allergy Verified 05/11/21 04:20 Review of Systems Review of Systems: Pertinent positives and negatives as stated in HPI 10 point review of systems otherwise negative. PMFSH Past Medical History Source: nursing notes reviewed Medical History Anxiety Costochondritis Depression Social History Social History Alcohol intake: never Patient Tobacco Use Status: Never used Tobacco Substance Use Type: Marijuana Advance Directives: No Advance Directives Information Provided: Yes Physical Exam ED Vital Signs: Vital Signs - 24 hr 11/05/21 03:40 11/05/21 05:21 Temperature 98.7 F 98.5 F Pulse Rate 97 81 Respiratory Rate 16 16 Blood Pressure 133/91 H 108/66 Pulse Oximetry 100 97 BMI result Body Mass Index 23.0 VITAL SIGNS: Reviewed. GENERAL: Well developed, well nourished, in no acute distress. HEAD: Normocephalic/atraumatic EYES: PERRLA, EOMI EARS: Ext canals without abnormality, TMs non-bulging and non-erythematous NOSE: Nares patent bilateral OROPHARYNX: no oral lesions noted, posterior pharynx clear and non-erythematous without noted tonsillar enlargement/erythema/exudates NECK: Supple, no adenopathy LUNGS: Normal breath sounds. No adventitious sounds or accessory muscle use. SpO2<100> CARDIOVASCULAR: Regular rate and rhythm without noted murmurs ABDOMEN: Soft, non-tender, non-distended with bowel sounds. MUSCULOSKELETAL: No tenderness, deformities, or effusions noted on gross inspection. EXTREMITIES: No cyanosis, clubbing or edema. SKIN: Inspection of the skin reveals no rashes NEUROLOGIC: Alert and oriented x 4. Strength and sensation to light touch were grossly intact x 4. Course Course Course Narrative: A 21-year-old male with history and clinical presentation suggestive of possible food poisoning and associated acid reflux. Patient has had no further episodes of nausea or vomiting, abdominal exam is benign and patient does not report any urinary or diarrhea. Review of all investigations otherwise negative for acute findings and on re-evaluation patient is feeling better and able to tolerate oral intake. Medical Decision Making Lab Data Labs: Lab Results 11/05/21 11/05/21 Range/Units 04:01 04:01 COVID-19 (CAMELIA) Negative (Negative) COVID-19 Clin Com See Note Influenza Type A (JAYME) Negative (Negative) Influenza Type B (JAYME) Negative (Negative) Influenza A & B Note See Note ECG Data Attestation: I personally reviewed and interpreted this ECG as follows: Prior ECG tracings: available for review Interpretation: Normal sinus rhythm, HR-84, no STEMI, ID/QRS/QTC are within normal limits. Discharge Plan Discharge Clinical Impression: Nausea & vomiting, Adverse drug effect Patient Disposition: Home, Self-Care Instructions: Acute Nausea and Vomiting (ED) Additional Instructions: 1. Reaction likely secondary to unknown pill purchased off of the street. Or possibly food contamination. 2. Consume only a bland diet for the next 24-48 hours. A prescription for antinausea medication has been sent to your pharmacy. Prescriptions: New ondansetron 4 mg film 4 mg PO Q8H PRN (Reason: nausea and vomiting) Qty: 30 0RF No Action cyclobenzaprine 10 mg tablet 10 mg PO TID PRN (Reason: muscle spasm) Qty: 7 0RF polyethylene glycol 3350 [Miralax] 17 gram/dose powder 17 g PO DAILY 9 Days Qty: 153 0RF hydroxyzine HCl 25 mg tablet 25 mg PO BID PRN (Reason: anxiety) Qty: 14 0RF metoclopramide HCl [Reglan] 10 mg tablet 10 mg PO Q6H PRN (Reason: nausea and vomiting) Qty: 14 0RF benzonatate [Tessalon Perles] 100 mg capsule 100 mg PO TID PRN (Reason: cough) Qty: 15 0RF Referrals: [facility] [Primary Care Provider] -
--- NOTE | 2021-11-05 14:23 | ECG_ITS ---
Test Reason : CHEST PAIN Blood Pressure : / mmHG Vent. Rate : 084 BPM Atrial Rate : 084 BPM P-R Int : 176 ms QRS Dur : 096 ms QT Int : 372 ms P-R-T Axes : 045 039 029 degrees QTc Int : 439 ms Normal sinus rhythm Normal ECG When compared with ECG of 05-NOV-2021 03:36, No significant change was found Referred By: Kathia Gary Electronically Signed By:FRANCISCO JAVIER YOUNGBLOOD MD
== END 2021-11-05 06:53 | disposition home or self-care (01) ==
PROVIDERS: Emergency Provider Student in an Organized Health Care Education/Training Program
DX: R07.89 Other chest pain (principal); R11.2 Nausea with vomiting, unspecified; Z20.822 Contact with and (suspected) exposure to COVID-19; Z79.899 Other long term (current) drug therapy
CPT/HCPCS: 71045; 87502; 87635; 93005; 99284